=== PATIENT | male | born 1955 | race Caucasian/White ===

== ENCOUNTER 2016-10-07 18:22 | Inpatient (IN) | payer OTHER ==
--- NOTE | ~2016-10-07 | DS ---
Discharge Summary [facility] [address]. [address] NAME: JASON LUIS : 55 STATUS : DIS IN PAT#: [id number] AGE: 61 ADM/REG DATE : 10/07/16 MR#: [id number] REPORT SERV DATE: 10/23/16 DICTATED BY: STEVE RIDLEY DATE: 10/23/16 REPORT STATUS : Draft TRANSCRIBED BY: LAYLA DATE: 10/23/16 Data Collection from hospitalization DISCHARGE DIAGNOSES: 1. Sepsis. 2. Ischemia/gangrene of the bilateral toes. 3. Peripheral vascular disease. 4. Deep venous thrombosis. 5. End-stage renal disease. 6. Status post failed renal transplant. 7. Coronary artery disease. 8. Hypertension. 9. Diabetes mellitus. 10.History of myocardial infarction. 11.Hypothyroidism. 12.Hyperlipidemia. CONSULTATIONS: iSd Maynard M.D. PROCEDURES PERFORMED: 1. Aortogram with bilateral lower extremity runoff, percutaneous atherectomy of left popliteal artery with 2.2 mm [place] atherectomy device, percutaneous angioplasty of left superficial femoral artery and popliteal arteries with 6 mm balloon, percutaneous angioplasty of left posterior tibial artery with 2-3 mm tapered balloon on 10/11/2016. 2. Bilateral lower extremity arteriogram on 10/15/2016. 3. Arterial Doppler study of the lower extremities on 10/09/2016. MEDICATIONS: Zyloprim 100 mg daily, aspirin 81 mg at bedtime, Lipitor 40 mg at bedtime, Coreg 6.25 mg daily, Plavix 75 mg daily, Neurontin 300 mg twice a day, Lantus 26 units subcutaneously daily, Humalog as instructed, Levothroid 125 mcg daily, Nitrostat 0.4 mg sublingually as needed, Deltasone 10 mg daily, Neosporin ointment one application topically daily as needed, and Coumadin 2.5 mg every evening. CONDITION AT DISCHARGE: Stable. DISPOSITION: The patient was discharged home on a renal-diabetic diet with no concentrated carbohydrates and activities as instructed. He would follow up with the [facility] following discharge for an INR check. He would follow up at the [facility] for wound care as scheduled. He would follow up at the Dialysis Clinic as scheduled on 10/17/2016. HOSPITAL COURSE: This is a 61-year-old man who has a history of renal transplant in 1998 along with pancreatic transplant in 1998, but later had a second pancreatic transplant in 2001 which became infected and had to be removed also. He has had a longstanding history of type 1 diabetes mellitus with neuropathy, chronic kidney disease, and hypothyroidism as well as hyperlipidemia. In July of 2016, he developed severe hypotension and cardiogenic shock after myocardial infarction with drug-eluting stent placed and initiation of hemodialysis shortly thereafter. His past medical history also included gout, manic depression, and hypothyroidism. He developed hypotension related to elevated procalcitonin Discharge Summary [place] [id number] [facility] [place]. [address] NAME: JASON LUIS : 55 STATUS : DIS IN PAT#: [id number] AGE: 61 ADM/REG DATE : 10/07/16 MR#: [id number] REPORT SERV DATE: 10/23/16 DICTATED BY: STEVE RIDLEY DATE: 10/23/16 REPORT STATUS : Draft TRANSCRIBED BY: MODL DATE: 10/23/16 and elevated white count with lactic acid of 5 and cloudy urine. There was also concern about possible infected PermCath. He was admitted to the hospital at this time for further evaluation and treatment. Upon admission, he was placed on Levophed in the emergency room. He had been dialyzing through the PermCath until the week prior to this admission at which time, they used the loop graft that had been placed in early August by Dr. Maynard for the first time the week prior to admission. He said that it became a bit swollen since then, but was nontender. He is steroid dependent for his kidney transplant, and while he was in the hospital in August, he had a DVT around his PermCath and was placed on Coumadin which the [facility] follows. He states that his urine has been cloudy lately. He still makes urine, but not as frequently as before. On the day of admission, he felt weak and when he would almost fall, his family caught him. His toes were raw and he had some blisters on them, they started bleeding when he would rub some after shower. White count was 14,000. He was felt to have sepsis and hypotension. He was started on vancomycin and Zosyn. His long-acting insulin was held and he was started on sliding scale insulin. It was felt that he may need level 2 once he received his IV steroids. Coumadin was continued. Thyroid replacement therapy continued as well. He was on Plavix and aspirin. The following day, he was seen by Dr. Sid Maynard for evaluation of atherosclerosis of the lower extremities with gangrene. He had seen the patient a few days prior to admission in the office. He had dry wounds on his toes. He had been asked to evaluate the patient regarding possible atherosclerosis of the lower extremities. He said he had these wounds for just a brief amount of time. The patient was felt to have an abnormal pulse examination that suggested that he have atherosclerosis of the lower extremities to go along with his dry gangrene on the bilateral toes. A duplex study would be performed to confirm physical exam findings and to allow for him to improve clinically before we move forward. If the duplex came back normal, we could potentially hold off on an angiogram. He was off the Levophed drip. He was on three antibiotics at this time. Blood and urine cultures had been obtained. He remained in the ICU at this time. His INR level was 1.5. On 10/09/2016, he underwent hemodialysis, 13 liters were removed. INR level was 1.6. He underwent an arterial Doppler study of the lower extremities. This demonstrated bilateral significant stenosis on the right in the distal popliteal proximal trifurcation vessels and on the left in the distal SFA. It was felt that he may wish to consider angiography. On 10/10/2016, he had no new complaints. Lower extremity wounds looked stable. He did have some nausea. His right arm was swollen. Insulin drip continued. On 10/11/2016, he was taken to the operating room by Dr. Sid Maynard, where he underwent the above-mentioned procedure. He tolerated this well, and there were no complications. Hemodialysis therapy was performed. He was restarted on his Coumadin. The following day, he had good pain control. White count was 17.8. Hemodialysis therapy continued. INR level was 1.8. He remained stable over the next couple of days, plans were made to take him back to the operating room. He continued to undergo hemodialysis. On 10/15/2016, antibiotics were continued as well as supportive care. He was taken back to the operating room by Dr. Sid Maynard, where he underwent the above-mentioned procedure. He tolerated this well, and there were no complications. Discharge planning was performed. On 10/16/2016, he had no complaints of pain. He had difficulty ambulating secondary to his balance. He was afebrile. White blood cell count had improved. Anticoagulation would be continued for DVT Discharge Summary [place] [address] [place]. [address] NAME: JASON LUIS : 55 STATUS : DIS IN PAT#: [id number] AGE: 61 ADM/REG DATE : 10/07/16 MR#: [id number] REPORT SERV DATE: 10/23/16 DICTATED BY: STEVE RIDLEY DATE: 10/23/16 REPORT STATUS : Draft TRANSCRIBED BY: LAYLA DATE: 10/23/16 prophylaxis. He was wanting to go home. He had no new complaints. He was now off antibiotics. His INR level was 1.5. Discharge instructions were given. Due to his improved and stable condition, he was discharged home with the above-stated instructions. Information collected by: So Burns I submit the above information as my discharge summary. TG/LAYLA Steve Ridley M.D. / [id number] CC: Giorgi Payne TAWANDA GALE Sachin V Phade, M.D.
--- NOTE | ~2016-10-07 | CN ---
Consultation [facility] [address] [place]. [address] NAME: JASON LUIS : 55 STATUS : ADM IN [facility]#: [id number] AGE: 61 ADM/REG DATE : 10/07/16 MR#: [id number] REPORT SERV DATE: 10/15/16 DICTATED BY: SID MAYNARD DATE: 10/14/16 REPORT STATUS : Draft TRANSCRIBED BY: MODL DATE: 10/14/16 CONSULTATION DATE OF CONSULTATION: 10/08/2016 REASON FOR CONSULTATION: Evaluation for atherosclerosis of his lower extremities with gangrene. BRIEF HISTORY: The patient is a 61-year-old gentleman with past medical history significant for diabetes and end-stage renal disease, who has had a right upper extremity AV graft placed by me in the recent past. He was subsequently admitted to the hospital with a right IJ DVT, for which I was consulted. We started him on anticoagulation. I just saw him a few days ago in the office, but he was admitted to the hospital with a distributive shock, presumably from sepsis. He was noted to have dry wounds on his toes. I was asked to evaluate him for possible atherosclerosis of his lower extremities. The patient denies any complaints. He says that he had had these wounds for just a brief amount of time. He did not mention them to me the other day in the office because he did not think that they were anything of significance. The patient denies anything that sounds like ischemic rest pain or claudication. PAST MEDICAL HISTORY: Diabetes, end-stage renal disease, hypothyroidism, hyperlipidemia, coronary artery disease, status post recent myocardial infarction. PAST SURGICAL HISTORY: Includes two pancreas transplants, a kidney transplant, cataract removal, cholecystectomy, right IJ PermCath placement, as well as a forearm loop AV graft. SOCIAL HISTORY: He is . He denies any tobacco, alcohol, or drug use. FAMILY HISTORY: Unremarkable. MEDICATIONS: Documented on the chart and were reviewed. ALLERGIES: NONE. REVIEW OF SYSTEMS: A complete review of systems was performed and is negative with the exception of the aforementioned findings. PHYSICAL EXAMINATION: VITAL SIGNS: Documented on the chart and were reviewed. GENERAL: The patient is awake, alert, and oriented, in no apparent distress. His head and neck examination is benign without any carotid bruits. HEART: Regular rate and rhythm. He was on a little bit of vasoactive medications at the Consultation Report [facility] [address] [place]. [address] NAME: JASON LUIS : 55 STATUS : ADM IN PAT#: [id number] AGE: 61 ADM/REG DATE : 10/07/16 MR#: [id number] REPORT SERV DATE: 10/15/16 DICTATED BY: SID MAYNARD DATE: 10/14/16 REPORT STATUS : Draft TRANSCRIBED BY: MODTim DATE: 10/14/16 time of my examination. LUNGS: Clear. ABDOMEN: Soft, nontender, nondistended with a nonaneurysmal aorta. EXTREMITIES: He has palpable upper extremity pulses with less edema in his forearm than he has had in the past. He has a thrill within his graft. He has palpable femoral pulses. He has palpable popliteal pulses also. I do not appreciate pedal pulses. He has dry gangrene on the tips of his toes bilaterally. NEUROLOGIC: Grossly nonfocal. MUSCULOSKELETAL: Otherwise benign. LABORATORY DATA: His laboratory investigations are consistent with his renal failure. ASSESSMENT AND PLAN: It looks like this gentleman has an abnormal pulse examination that suggests that he has atherosclerosis of his lower extremities to go along with his dry gangrene on his toes bilaterally. I introduced the risks, benefits, and alternatives of angiography with intervention. I would like to get a duplex to confirm my physical exam findings and allow for him to improve clinically before we move forward. If his duplex comes back normal, we could potentially hold off on an angiogram. ELECTRICIAN SUBSTATION SUPERVISOR/LAYLA Sid Maynard M.D. / [id number] CC: Steve Telles M.D.
--- NOTE | ~2016-10-07 | OP ---
Record Of Operation [facility] [address] [place]. [address] NAME: JASON LUIS : 55 STATUS : ADM IN PAT#: [id number] AGE: 61 ADM/REG DATE : 10/07/16 MR#: [id number] REPORT SERV DATE: 10/12/16 DICTATED BY: SID MAYNRAD DATE: 10/12/16 REPORT STATUS : Draft TRANSCRIBED BY: MODTim DATE: 10/12/16 DATE OF PROCEDURE: 10/11/2016 PREOPERATIVE DIAGNOSIS: Hilda 5 chronic bilateral lower extremity ischemia. POSTOPERATIVE DIAGNOSIS: Hilda 5 chronic bilateral lower extremity ischemia. PROCEDURES: 1. Aortogram with bilateral lower extremity runoff. 2. Percutaneous atherectomy of the left popliteal artery with a 2.2 mm [place] atherectomy device. 3. Percutaneous angioplasty of the left SFA and popliteal arteries with a 6 mm balloon. 4. Percutaneous angioplasty of the left posterior tibial artery with a 2-3 mm tapered balloon. SURGEON: Sid Maynard M.D. MANAGER MARKET: [employer]. ANESTHESIA: MAC plus local. INDICATIONS: The patient is a 61 year old with a history of diabetes and renal failure, who has dry gangrene on his toes bilaterally. He has an abnormal pulse examination. Duplex confirms that he has infrapopliteal disease. Thus, he was consented for intervention. DESCRIPTION OF PROCEDURE: After informed consent was obtained, the patient was taken to the operating room and placed in the supine position on the operating table. Monitored anesthesia was administered. The patient's groins and left lower extremity were prepped and draped in usual sterile fashion. Ultrasound-guided access was obtained of the right common femoral artery using a micropuncture technique. An oblique angiogram confirmed puncture within the anterior common femoral artery. I passed a wire up into the aorta. I placed a 5 [place]i sheath. A UF catheter was placed into the perirenal aorta. An aortogram demonstrated occluded renal arteries bilaterally. The arteries were extremely calcified. There was no hemodynamically significant aortoiliac disease. I pulled the catheter down above the aortic bifurcation and obtained pulse phase imaging down both lower extremities. This revealed no hemodynamically significant bilateral common femoral, deep femoral, or superficial femoral artery disease. Having said that, there was some calcification within the left SFA. Some of this extruded into the lumen of the SFA. There were bilateral popliteal artery occlusions with no distal reconstitution noted. I systemically heparinized and placed a 6-Bahraini 90 cm sheath up and over the aortic bifurcation into the left popliteal artery. I obtained an angiogram from this point that demonstrated that there may be a hint of peroneal runoff. This was not previously visualized. I crossed the calcified popliteal artery occlusion and obtained an angiogram with the catheter in the popliteal artery. This demonstrated that the very first segment of the anterior tibial artery was patent. The rest of it was occluded. The tibioperoneal trunk was patent, as was the peroneal artery. The posterior tibial artery was patent, but had stenosis in the Record Of Operation [place] [id number] [facility] [place]. [address] NAME: JASON LUIS : 55 STATUS : ADM IN [facility]#: [id number] AGE: 61 ADM/REG DATE : 10/07/16 MR#: [id number] REPORT SERV DATE: 10/12/16 DICTATED BY: SID MAYNARD DATE: 10/12/16 REPORT STATUS : Draft TRANSCRIBED BY: LAYLA DATE: 10/12/16 midportion. Thus, I performed a jet stream atherectomy of the left popliteal artery. I performed a [place] atherectomy of the left popliteal artery using a 2.2 mm device. I subsequently angioplastied the artery with a 6 mm balloon. Imaging obtained afterwards showed a great result. I went back up and angioplastied the other calcified lesions of the SFA where there was some plaque extruding into the lumen of the artery, as oblique imaging did demonstrate that there was more significant stenosis than originally appreciated. I then obtained imaging that showed a good result. I angioplastied the left posterior tibial artery with a 2 to 2-1/2 mm tapered balloon. Imaging obtained afterwards showed improvement. Having said that, there was sluggish flow down through the arteries. This was noted even on our first imaging. I put my catheter down into the posterior tibial artery and obtained the imaging of the foot, as prior imaging was inadequate. There was a calcified occlusion of the posterior tibial artery right at the ankle. There was minimal flow in the foot via collaterals. I tried to cross this posterior tibial artery occlusion, but was unsuccessful. I did not think that this was an embolus, but rather in situ calcification. Seeing as how we had improvement in flow all the way down to the ankle with collateralization to the foot, I withdrew my wire, catheter, and sheath, and used a ProGlide device to close the arteriotomy. The patient tolerated the procedure well without any intraprocedural complications noted. If he does well from this, he will need staged attempted intervention on his right lower extremity. Once again, I did not see any distal reconstitution noted on the right side, but it may be a case similar to this in that there is something open past the popliteal artery, but it cannot be visualized from the imaging that we have already obtained. TERRITORY SALES REPRESENTATIVE/MODL Sid Maynard M.D. / [id number] CC: Giorgi Payne M.D.
--- NOTE | ~2016-10-07 | HP ---
History And Physical [place] [id number] [facility] [place]. [address] NAME: JASON LUIS : 55 STATUS : ADM IN [facility]#: [id number] AGE: 61 ADM/REG DATE : 10/07/16 MR#: [id number] REPORT SERV DATE: 10/08/16 DICTATED BY: STEVE RIDLEY DATE: 10/07/16 REPORT STATUS : Draft TRANSCRIBED BY: MODL DATE: 10/07/16 DATE OF ADMISSION: 10/07/2016 HISTORY OF PRESENT ILLNESS: Mr. Luis is a 61-year-old white male with a history of renal transplant in 1998 along with pancreatic transplant in 1998, but later had a second pancreatic transplant in 2001 which became infected and had to be removed also. He has had a longstanding history of diabetes mellitus type 1 with neuropathy, chronic kidney disease, hypothyroidism, hyperlipidemia, and in July 2016 he developed severe hypotension and cardiogenic shock after myocardial infarction with drug-eluting stent placed, and initiation of hemodialysis shortly thereafter. His past medical history also includes gout, manic depression, and hypothyroidism. He is admitted now for hypotension related to elevated procalcitonin, elevated white count, lactate acid of 5 and reported cloudy urine and also concern about possibly infected Permacath. He was admitted and placed on Levophed in the emergency room via a peripheral IV and that was switched over to his Permacath when he arrived in the unit. He has been dialyzing through the Permacath until last week at which time they used the loop graft that was placed in early August by Dr. Maynard for the first time last week. He says it has been a bit swollen since then, but nontender. He is steroid dependent from his kidney transplants, and while he was in the hospital in August he had a DVT around his Permacath and [facility]. He states that his urine has been cloudy lately. He still makes urine, but not as frequently as before. He felt weak today, tried to falls his family caught him. His toes have been raw, he has some blisters on them, and that have started bleeding when he rubs some after showers. REVIEW OF SYSTEMS: Remainder of review of systems is negative. SOCIAL HISTORY: No tobacco. No alcohol. 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 Disabled, and . FAMILY HISTORY: Colon cancer in his father. Hypertension and diabetes in his mother. End- stage renal disease in a brother. His sister gave him first kidney. PHYSICAL EXAMINATION: VITAL SIGNS: Blood pressure 110/66, heart rate of 85, respirations 10 to 15, afebrile. GENERAL: Alert, in good spirits. Good historian. HEENT: Unremarkable. NECK: Supple. No jugular venous distention. He has a right IJ Permacath without tenderness over the exit site. CHEST: Clear bilaterally. CARDIOVASCULAR: Grade 2/6 systolic ejection murmur. No rub. ABDOMEN: No tenderness over his abdomen and cannot palpate the renal transplant, but it is still there. Bowel sounds are present. EXTREMITIES: Toes 6 of his 10 toes have blisters on them which show some blood clots on them, but no active bleeding. Second toe on his left foot has a Band-Aid on it, did not remove the toes, not warm, and there is no drainage. Loop graft of the right forearm nontender, some edema around it. No edema in his lower extremities. History And Physical [address] [address] NAME: JASON LUIS : 55 STATUS : ADM IN [facility]#: [id number] AGE: 61 ADM/REG DATE : 10/07/16 MR#: [id number] REPORT SERV DATE: 10/08/16 DICTATED BY: STEVE RIDLEY DATE: 10/07/16 REPORT STATUS : Draft TRANSCRIBED BY: MODTim DATE: 10/07/16 LABORATORY DATA: Lab work shows a blood gas with a pH of 7.49, pCO2 of 29, PO2 of 72 on room air. Sodium 136, potassium 3.9, chloride 92, CO2 of 24, BUN of 52, creatinine 5.9, blood sugar 72. Troponin 0.03. Lactate of 5. Calcium 8.9, magnesium 2.1. White count 698[address], hemoglobin 9, hematocrit 29, and platelet count 335,000. Chest x-ray shows clear lung andrade. Recent urine in August showed Pseudomonas that was pansensitive and enterococci which was also sensitive to vancomycin. ASSESSMENT: 1. Sepsis, hypotension, lactic acid, elevated white count and procalcitonin elevation. I have started Vanco and Zosyn based on urine sensitivities from August as well as possibility of catheter infection and there is a left retrocardiac haziness that is hard to tell if it is normal or not. I will await Pulmonary or x-ray radiologist's opinion. 2. End-stage renal disease, on Saturday, Saturday, Saturday, [address] [facility] following a failed renal transplant in 1998. 3. Diabetes mellitus. He has failed pancreatic transplant both in 1998 and 2001, back on insulin. I have held his long-acting insulin, but started on sliding scale. May need higher than level 2 once he gets his IV steroids. 4. Recent deep venous thrombosis, on Coumadin. We will continue. 5. Hypothyroidism, on replacement therapy. 6. Coronary artery disease, status post acute DC in July with cardiogenic shock resulted with a drug-eluting stent, on Plavix and aspirin. 7. Recurrent urinary tract infections suspected. 8. Hypertension, currently hypotensive. We will hold blood pressure medicines. 9. Arteriovenous graft loop on the right forearm and right IJ Permacath, both placed by Dr. Maynard in August. Plan dialysis in a.m. YARITZA/LAYLA Steve Ridley M.D. / [id number] CC: Giorgi Payne MD
--- NOTE | ~2016-10-07 | OP ---
Record Of Operation [facility] [address] [place]. [address] NAME: JASON LUIS : 55 STATUS : ADM IN PAT#: [id number] AGE: 61 ADM/REG DATE : 10/07/16 MR#: [id number] REPORT SERV DATE: 10/16/16 DICTATED BY: SID MAYNARD DATE: 10/15/16 REPORT STATUS : Draft TRANSCRIBED BY: MODL DATE: 10/15/16 DATE OF PROCEDURE: 10/15/2016 PREOPERATIVE DIAGNOSIS: Ritchie V chronic bilateral lower extremity ischemia. POSTOPERATIVE DIAGNOSIS: Ritchie V chronic bilateral lower extremity ischemia.. PROCEDURE: Bilateral lower extremity arteriogram. SURGEON: Sid Maynard M.D. DRAIN TILE PRESS OPERATOR: None. ANESTHESIA: MAC plus local. INDICATIONS: The patient is a 61-year-old gentleman with a past medical history significant for end-stage renal disease and diabetes who has dry gangrene on his toes bilaterally with evidence of atherosclerosis of his lower extremities. I performed a left lower extremity intervention in a few days ago and he returns for a staged right lower extremity intervention. Risks, benefits, and alternatives were discussed. He wished to proceed. DESCRIPTION OF PROCEDURE: After informed consent was obtained, the patient was taken to the operating room and placed in the supine position on the operating table. Monitored anesthesia was administered. The patient's groins and right lower extremity were prepped and draped in the usual sterile fashion. Ultrasound-guided access was obtained of the left common femoral artery using a micropuncture technique. An oblique angiogram confirmed puncture within the anterior common femoral artery. I selected out the right common iliac artery. I obtained an angiogram that demonstrated no hemodynamically significant right common iliac, internal iliac, and external iliac artery disease. The arteries, however, were calcified. I selected out the right external iliac artery and obtained sequential imaging down the right lower extremity. While there was sluggish flow, there was no hemodynamically significant right common femoral, deep femoral, or superficial femoral artery disease. There was a popliteal artery occlusion and more distal reconstitution was not noted. I systemically heparinized and placed a 6-Slovenian 90 cm sheath up and over the aortic bifurcation into the right popliteal artery. I obtained an angiogram from this point, as prior imaging was inadequate. This demonstrated a popliteal artery occlusion with reconstitution of a very short segment of diseased popliteal artery. There was late filling of the posterior tibial artery in the mid leg, but more distal flow was not noted. I had to cross the right popliteal artery occlusion, but was unsuccessful. I obtained additional imaging that demonstrated that there was perhaps a segment of the peroneal artery that was patent. The posterior tibial artery was patent along the mid segment. The anterior tibial artery was chronically occluded. The more distal posterior tibial and peroneal arteries were occluded with no distal runoff noted. I then ultrasounded the right posterior tibial artery. Although I did not see any color flow on the ultrasound, I tried to access it in a retrograde fashion to see if I could find an open lumen. I was unsuccessful. Thus, I pulled my sheath back into the left external iliac artery and obtained sequential imaging Record Of [address] [place]. [address] NAME: JASON LUIS : 55 STATUS : ADM IN [facility]#: [id number] AGE: 61 ADM/REG DATE : 10/07/16 MR#: [id number] REPORT SERV DATE: 10/16/16 DICTATED BY: SID MAYNARD DATE: 10/15/16 REPORT STATUS : Draft TRANSCRIBED BY: MODTim DATE: 10/15/16 down the left lower extremity. The popliteal artery that was previously intervened upon was patent. The posterior tibial and peroneal arteries were patent proximally. More distal flow was not noted in the posterior tibial artery, the flow was extremely sluggish, as previously noted. At this point, I withdrew my wire, catheter, and sheath and used a ProGlide device to close the arteriotomy. The patient tolerated the procedure well without any intraprocedural complications noted. TUNGSTEN TENDER/MODL Sid Maynard M.D. / [id number] CC: Giorgi Payne TAWANDA GALE Mandeep Grewal, M.D.
[~2016-10-07 18:22] MED LIST: APRES25 PO; ASAB PO; CEFT5 PO; CIP5 PO; COREG6 PO; COUMADIN7.5 MG PO; COZAAR100 MG PO; EFFIENT10 PO; FOSRENOL1000 MG PO; HUMAPUMP SC; L40 PO; LANTUSCART SC; LIPITOR40 PO; MAGOX4 PO; NEUR300 PO; NITROSTAT0.4 MG SL; NORV5 PO; NOVLOGPUMP SC; NOVOLOG SC; P5 PO; PHOSLO PO; PLAVIX PO; PROGRAF1 PO; ROCALTROL 0.0.25 MCG PO; SYN125 PO; TAZTIA X4 PO; VANCO500 IV; VASOTEC2 PO; Z100 PO; ZOCOR10 PO; ZOFRAN ODT4 MG PO
[2016-10-07 18:24] LABS: BASOPHILS 0.2 %; BASOPHILS ABSOLUTE 0.03 10/3/uL (0.0-0.16); EOSINOPHILS 1.1 %; EOSINOPHILS ABSOLUTE 0.16 10/3/uL (0.0-0.53); HEMATOCRIT 29.6 % (40.0-51.0); HEMOGLOBIN 9.5 g/dL (13.6-17.8); IMMATURE GRANULOCYTES 0.3 %; IMMATURE GRANULOCYTES ABSOLUTE 0.05 10/3/uL (0.0-0.11); LYMPHOCYTES 5.6 %; LYMPHOCYTES ABSOLUTE 0.81 10/3/uL (0.67-4.30); MANUAL DIFF NO %; MEAN CORPUS HGB CONC 32.1 g/dL (32.0-36.0); MEAN CORPUSCULAR HEMOGLOB 27.1 pg (26.0-34.0); MEAN CORPUSCULAR VOLUME 84.6 fL (80-100); MONOCYTES 7.6 %; MONOCYTES ABSOLUTE 1.09 10/3/uL (0.21-1.20); NEUTROPHILS 85.2 %; NEUTROPHILS ABSOLUTE 12.21 10/3/uL (2.02-8.40); PLATELET COUNT 335 10/3/uL (150-400); RBC DISTRIBUTION WIDTH 17.3 % (12.0-16.0); WHITE BLOOD CELLS 14.4 10/3/uL (4.5-10.5)
[2016-10-07 18:33] LABS: INTERNATIONAL NORMAL RATI 1.5 UNITS (-); PARTIAL THROMBO TIME 39.7 SEC (22.5-37.2)
[2016-10-07 18:36] LABS: PROTIME (NOT ORD) 18.4 SEC (12.0-14.5)
[2016-10-07 18:41] LABS: BUN (BLOOD UREA NITROGEN) 52 MG/DL (6-23); CALCIUM, SERUM 8.9 MG/DL (8.5-10.4); CHEST PAIN PROFILE TAT 0 Hrs 22 Mins; CHLORIDE, SERUM 96 MMOL/L (96-112); CO2 (CARBON DIOXIDE) 24 MMOL/L (24-34); CREATININE 5.98 MG/DL (0.70-1.30); GFR AFRICAN AMERICAN 11 ML/MIN (>=60); GFR NON AFRICAN AMERICAN 9 ML/MIN (>=60); GLUCOSE, SERUM 72 MG/DL (60-99); POTASSIUM, SERUM 3.9 MMOL/L (3.5-5.3); SODIUM, SERUM 136 MMOL/L (135-148); TROPONIN I 0.03 NG/ML (<0.05)
[2016-10-07 19:43] LABS: PROCALCITONIN 64.06 ng/mL (<0.5)
[2016-10-07] MEDS ORDERED: COREG6 PO (19:48)
[2016-10-07] MEDS ORDERED: LIPITOR40 PO (19:48)
[2016-10-07] MEDS ORDERED: ASAB PO (19:48)
[2016-10-07] MEDS ORDERED: Z100 PO (19:48)
[2016-10-07] MEDS ORDERED: P5 PO (19:49)
[2016-10-07] MEDS ORDERED: PLAVIX PO (19:49)
[2016-10-07] MEDS ORDERED: NEUR300 PO (19:49)
[2016-10-07] MEDS ORDERED: LEVOTHROID125 MCG PO (19:49)
[2016-10-07] MEDS ORDERED: NITROSTAT0.4 MG SL (19:50)
[2016-10-07] MEDS ORDERED: LANTUS SC (19:50)
[2016-10-07] MEDS ORDERED: C25 PO (19:50)
[2016-10-07] MEDS ORDERED: NEO-OINT15 TOP (19:50)
[2016-10-07] MEDS ORDERED: HUMALOG SC (19:50)
[2016-10-07 20:46] LABS: ALLENS TEST Pos; BE (BASE EXCESS) -1.1 MEQ/L (0 +/- 2.5); HCO3 (ACTUAL BICARBONATE) 21.6 MEQ/L (23-27); HEMOBLOGIN CONTENT 10.1 G/DL (14-18); INSTRUMENT SERIAL # 8087; METHEMOGLOBIN 0.1 % (0-3); O2 CONTENT 13.3 VOL% (18-24); PCO2 (CO2 TENSION) 29 MMHG (35-45); PO2 (O2 TENSION) 72 MMHG (79-93); SAMPLE Arterial; pH 7.49 (7.37-7.43)
[2016-10-08 00:22] LABS: ASCORBIC ACID (UR NOT ORDER) NEG (NEG); BILIRUBIN, URINE NEGATIVE (NEG); ER URINALYSIS TAT 0 Hrs 19 Mins; KETONE, URINE TRACE MG/DL (NEG); LEUKOCYTE ESTERASE(NOT OR LARGE (NEG); NITRITE (URINE) NEG (NEG); WBC (NOT ORDERED) (RFLEX) 125 (0-5)
[2016-10-08 04:46] LABS: BASOPHILS 0.1 %; BASOPHILS ABSOLUTE 0.01 10/3/uL (0.0-0.16); EOSINOPHILS 0.1 %; EOSINOPHILS ABSOLUTE 0.01 10/3/uL (0.0-0.53); HEMATOCRIT 29.4 % (40.0-51.0); HEMOGLOBIN 9.6 g/dL (13.6-17.8); IMMATURE GRANULOCYTES 0.3 %; IMMATURE GRANULOCYTES ABSOLUTE 0.03 10/3/uL (0.0-0.11); LYMPHOCYTES 3.1 %; LYMPHOCYTES ABSOLUTE 0.32 10/3/uL (0.67-4.30); MEAN CORPUS HGB CONC 32.7 g/dL (32.0-36.0); MEAN CORPUSCULAR HEMOGLOB 27.4 pg (26.0-34.0); MONOCYTES 2.1 %; MONOCYTES ABSOLUTE 0.21 10/3/uL (0.21-1.20); NEUTROPHILS 94.3 %; NEUTROPHILS ABSOLUTE 9.61 10/3/uL (2.02-8.40); PLATELET COUNT 333 10/3/uL (150-400); RBC DISTRIBUTION WIDTH 17.3 % (12.0-16.0); WHITE BLOOD CELLS 10.2 10/3/uL (4.5-10.5)
[2016-10-08 04:49] LABS: MANUAL DIFF NO %
[2016-10-08 04:58] LABS: BUN (BLOOD UREA NITROGEN) 52 MG/DL (6-23); CALCIUM, SERUM 8.7 MG/DL (8.5-10.4); CHLORIDE, SERUM 97 MMOL/L (96-112); CO2 (CARBON DIOXIDE) 24 MMOL/L (24-34); CREATININE 5.92 MG/DL (0.70-1.30); GFR AFRICAN AMERICAN 11 ML/MIN (>=60); GFR NON AFRICAN AMERICAN 9 ML/MIN (>=60); POTASSIUM, SERUM 3.9 MMOL/L (3.5-5.3); SODIUM, SERUM 135 MMOL/L (135-148)
[2016-10-08 05:00] LABS: INTERNATIONAL NORMAL RATI 1.5 UNITS (-); PROTIME (NOT ORD) 18.1 SEC (12.0-14.5)
[2016-10-08 05:01] LABS: GLUCOSE, SERUM 87 MG/DL (60-99)
[2016-10-08 06:37] LABS: PROCALCITONIN 51.89 ng/mL (<0.5)
[2016-10-09 10:55] LABS: BASOPHILS 0.1 %; BASOPHILS ABSOLUTE 0.01 10/3/uL (0.0-0.16); EOSINOPHILS 0 %; HEMATOCRIT 26.9 % (40.0-51.0); HEMOGLOBIN 8.9 g/dL (13.6-17.8); IMMATURE GRANULOCYTES 0.2 %; IMMATURE GRANULOCYTES ABSOLUTE 0.02 10/3/uL (0.0-0.11); LYMPHOCYTES ABSOLUTE 0.47 10/3/uL (0.67-4.30); MEAN CORPUS HGB CONC 33.1 g/dL (32.0-36.0); MEAN CORPUSCULAR HEMOGLOB 26.6 pg (26.0-34.0); MEAN PLATELET VOLUME 9.7 fL (9.2-13.0); MONOCYTES 1.5 %; MONOCYTES ABSOLUTE 0.17 10/3/uL (0.21-1.20); NEUTROPHILS 94.2 %; NEUTROPHILS ABSOLUTE 11.01 10/3/uL (2.02-8.40); PLATELET COUNT 292 10/3/uL (150-400); RBC DISTRIBUTION WIDTH 17.2 % (12.0-16.0); RED CELL COUNT 3.35 10/6/uL (4.7-6.1); WHITE BLOOD CELLS 11.7 10/3/uL (4.5-10.5)
[2016-10-09 10:56] LABS: MANUAL DIFF NO %; MEAN CORPUSCULAR VOLUME 80.3 fL (80-100)
[2016-10-09 11:06] LABS: BUN (BLOOD UREA NITROGEN) 79 MG/DL (6-23); CALCIUM, SERUM 7.7 MG/DL (8.5-10.4); CHLORIDE, SERUM 98 MMOL/L (96-112); CO2 (CARBON DIOXIDE) 19 MMOL/L (24-34); CREATININE 6.66 MG/DL (0.70-1.30); GFR AFRICAN AMERICAN 9 ML/MIN (>=60); GFR NON AFRICAN AMERICAN 8 ML/MIN (>=60); GLUCOSE, SERUM 228 MG/DL (60-99); POTASSIUM, SERUM 4.7 MMOL/L (3.5-5.3); SODIUM, SERUM 132 MMOL/L (135-148)
[2016-10-09 15:45] LABS: INTERNATIONAL NORMAL RATI 1.6 UNITS (-)
[2016-10-10 02:12] LABS: INTERNATIONAL NORMAL RATI 1.6 UNITS (-); PROTIME (NOT ORD) 19.3 SEC (12.0-14.5)
[2016-10-10 13:10] LABS: CALCIUM, SERUM 8.3 MG/DL (8.5-10.4); CHLORIDE, SERUM 101 MMOL/L (96-112); SODIUM, SERUM 136 MMOL/L (135-148)
[2016-10-10 13:13] LABS: BUN (BLOOD UREA NITROGEN) 60 MG/DL (6-23); CO2 (CARBON DIOXIDE) 23 MMOL/L (24-34); CREATININE 5.23 MG/DL (0.70-1.30); GFR AFRICAN AMERICAN 13 ML/MIN (>=60); GFR NON AFRICAN AMERICAN 11 ML/MIN (>=60); GLUCOSE, SERUM 152 MG/DL (60-99); POTASSIUM, SERUM 4.9 MMOL/L (3.5-5.3)
[2016-10-11 07:21] LABS: BASOPHILS 0.1 %; BASOPHILS ABSOLUTE 0.01 10/3/uL (0.0-0.16); EOSINOPHILS 0 %; HEMATOCRIT 31.7 % (40.0-51.0); HEMOGLOBIN 10.3 g/dL (13.6-17.8); IMMATURE GRANULOCYTES 0.6 %; IMMATURE GRANULOCYTES ABSOLUTE 0.11 10/3/uL (0.0-0.11); LYMPHOCYTES 2.8 %; LYMPHOCYTES ABSOLUTE 0.49 10/3/uL (0.67-4.30); MANUAL DIFF NO %; MEAN CORPUS HGB CONC 32.5 g/dL (32.0-36.0); MEAN CORPUSCULAR VOLUME 83.2 fL (80-100); MEAN PLATELET VOLUME 10.3 fL (9.2-13.0); MONOCYTES 2.2 %; NEUTROPHILS 94.3 %; NEUTROPHILS ABSOLUTE 16.79 10/3/uL (2.02-8.40); PLATELET COUNT 353 10/3/uL (150-400); RBC DISTRIBUTION WIDTH 18.2 % (12.0-16.0); RED CELL COUNT 3.81 10/6/uL (4.7-6.1); WHITE BLOOD CELLS 17.8 10/3/uL (4.5-10.5)
[2016-10-11 07:28] LABS: INTERNATIONAL NORMAL RATI 1.6 UNITS (-); PROTIME (NOT ORD) 19.1 SEC (12.0-14.5)
[2016-10-11 07:38] LABS: CALCIUM, SERUM 8.3 MG/DL (8.5-10.4); CHLORIDE, SERUM 98 MMOL/L (96-112); CO2 (CARBON DIOXIDE) 23 MMOL/L (24-34); GFR AFRICAN AMERICAN 11 ML/MIN (>=60); GFR NON AFRICAN AMERICAN 10 ML/MIN (>=60); GLUCOSE, SERUM 176 MG/DL (60-99); SODIUM, SERUM 137 MMOL/L (135-148)
[2016-10-11 07:39] LABS: BUN (BLOOD UREA NITROGEN) 73 MG/DL (6-23); CREATININE 5.75 MG/DL (0.70-1.30)
[2016-10-11 07:40] LABS: POTASSIUM, SERUM 5.5 MMOL/L (3.5-5.3)
[2016-10-11 14:37] LABS: ALBUMIN 2.3 G/DL (3.5-5.0); PHOSPHORUS, SERUM 7.1 MG/DL (2.5-4.5)
[2016-10-12 07:19] LABS: INTERNATIONAL NORMAL RATI 1.8 UNITS (-); PROTIME (NOT ORD) 20.3 SEC (12.0-14.5)
[2016-10-12 10:39] LABS: BASOPHILS 0 %; EOSINOPHILS 0 %; HEMATOCRIT 31.8 % (40.0-51.0); IMMATURE GRANULOCYTES 0.8 %; IMMATURE GRANULOCYTES ABSOLUTE 0.11 10/3/uL (0.0-0.11); LYMPHOCYTES 2.7 %; LYMPHOCYTES ABSOLUTE 0.38 10/3/uL (0.67-4.30); MEAN CORPUS HGB CONC 31.4 g/dL (32.0-36.0); MEAN CORPUSCULAR HEMOGLOB 27.9 pg (26.0-34.0); MEAN PLATELET VOLUME 10.2 fL (9.2-13.0); MONOCYTES 3.3 %; MONOCYTES ABSOLUTE 0.47 10/3/uL (0.21-1.20); NEUTROPHILS 93.2 %; NEUTROPHILS ABSOLUTE 13.21 10/3/uL (2.02-8.40); PLATELET COUNT 353 10/3/uL (150-400); RBC DISTRIBUTION WIDTH 18.2 % (12.0-16.0); RED CELL COUNT 3.58 10/6/uL (4.7-6.1); WHITE BLOOD CELLS 14.2 10/3/uL (4.5-10.5)
[2016-10-12 10:40] LABS: MANUAL DIFF NO %; MEAN CORPUSCULAR VOLUME 88.8 fL (80-100)
[2016-10-12 10:55] LABS: ALBUMIN 2.3 G/DL (3.5-5.0); CALCIUM, SERUM 8.2 MG/DL (8.5-10.4); CHLORIDE, SERUM 101 MMOL/L (96-112); CO2 (CARBON DIOXIDE) 26 MMOL/L (24-34); CREATININE 5.31 MG/DL (0.70-1.30); GFR AFRICAN AMERICAN 12 ML/MIN (>=60); GFR NON AFRICAN AMERICAN 11 ML/MIN (>=60); POTASSIUM, SERUM 4.9 MMOL/L (3.5-5.3); SODIUM, SERUM 139 MMOL/L (135-148)
[2016-10-12 10:57] LABS: BUN (BLOOD UREA NITROGEN) 67 MG/DL (6-23); GLUCOSE, SERUM 318 MG/DL (60-99); PHOSPHORUS, SERUM 5.6 MG/DL (2.5-4.5)
[2016-10-13 08:12] LABS: INTERNATIONAL NORMAL RATI 1.8 UNITS (-); PROTIME (NOT ORD) 20.7 SEC (12.0-14.5)
[2016-10-13 10:26] LABS: ALBUMIN 2.3 G/DL (3.5-5.0); BASOPHILS 0.2 %; BASOPHILS ABSOLUTE 0.04 10/3/uL (0.0-0.16); CALCIUM, SERUM 8.5 MG/DL (8.5-10.4); CHLORIDE, SERUM 99 MMOL/L (96-112); EOSINOPHILS 0 %; HEMATOCRIT 32.5 % (40.0-51.0); HEMOGLOBIN 10.2 g/dL (13.6-17.8); IMMATURE GRANULOCYTES 2.2 %; LYMPHOCYTES 3.8 %; MEAN CORPUS HGB CONC 31.4 g/dL (32.0-36.0); MEAN CORPUSCULAR HEMOGLOB 26.6 pg (26.0-34.0); MONOCYTES 6.2 %; MONOCYTES ABSOLUTE 1.15 10/3/uL (0.21-1.20); NEUTROPHILS 87.6 %; NEUTROPHILS ABSOLUTE 16.24 10/3/uL (2.02-8.40); NUCLEATED RED BLOOD CELLS 0.8 /100WBC (0-0); PLATELET COUNT 379 10/3/uL (150-400); POTASSIUM, SERUM 5.2 MMOL/L (3.5-5.3); RBC DISTRIBUTION WIDTH 18.7 % (12.0-16.0); RED CELL COUNT 3.84 10/6/uL (4.7-6.1); SODIUM, SERUM 134 MMOL/L (135-148); WHITE BLOOD CELLS 18.5 10/3/uL (4.5-10.5)
[2016-10-13 10:27] LABS: BUN (BLOOD UREA NITROGEN) 94 MG/DL (6-23); CO2 (CARBON DIOXIDE) 21 MMOL/L (24-34); CREATININE 5.82 MG/DL (0.70-1.30); GFR AFRICAN AMERICAN 11 ML/MIN (>=60); GFR NON AFRICAN AMERICAN 10 ML/MIN (>=60); GLUCOSE, SERUM 173 MG/DL (60-99); PHOSPHORUS, SERUM 6.7 MG/DL (2.5-4.5)
[2016-10-13 10:29] LABS: MANUAL DIFF NO %; MEAN CORPUSCULAR VOLUME 84.6 fL (80-100)
[2016-10-14 08:19] LABS: HEMATOCRIT 33.8 % (40.0-51.0); HEMOGLOBIN 10.4 g/dL (13.6-17.8); MEAN CORPUS HGB CONC 30.8 g/dL (32.0-36.0); MEAN CORPUSCULAR HEMOGLOB 26.9 pg (26.0-34.0); MEAN PLATELET VOLUME 9.8 fL (9.2-13.0); PLATELET COUNT 327 10/3/uL (150-400); RBC DISTRIBUTION WIDTH 19.6 % (12.0-16.0); RED CELL COUNT 3.86 10/6/uL (4.7-6.1); WHITE BLOOD CELLS 11.6 10/3/uL (4.5-10.5)
[2016-10-14 08:29] LABS: INTERNATIONAL NORMAL RATI 1.8 UNITS (-); PROTIME (NOT ORD) 20.3 SEC (12.0-14.5)
[2016-10-14 08:39] LABS: ALBUMIN 2.2 G/DL (3.5-5.0); CALCIUM, SERUM 8.4 MG/DL (8.5-10.4); CHLORIDE, SERUM 100 MMOL/L (96-112); CO2 (CARBON DIOXIDE) 23 MMOL/L (24-34); GFR AFRICAN AMERICAN 13 ML/MIN (>=60); GFR NON AFRICAN AMERICAN 11 ML/MIN (>=60); GLUCOSE, SERUM 172 MG/DL (60-99); PHOSPHORUS, SERUM 5.9 MG/DL (2.5-4.5); POTASSIUM, SERUM 4.8 MMOL/L (3.5-5.3); SODIUM, SERUM 136 MMOL/L (135-148)
[2016-10-14 08:40] LABS: BUN (BLOOD UREA NITROGEN) 74 MG/DL (6-23); CREATININE 5.16 MG/DL (0.70-1.30)
[2016-10-14 08:41] LABS: MANUAL DIFF YES %; MEAN CORPUSCULAR VOLUME 87.6 fL (80-100)
[2016-10-14 09:20] LABS: ACANTHOCYTES FEW (3-10/OIF); ANISOCYTOSIS 1+ (5-10/OIF) (0-5/OIF); BAND NEUTROPHILS 1 %; EOSINOPHILS 3 %; EOSINOPHILS ABSOLUTE (CALC) 0.35 10/3/uL (0.0-0.53); IMMATURE GRANS ABSOLUTE (CALC) 0.35 10/3/uL (0.0-0.11); LYMPHOCYTES 3 %; LYMPHOCYTES ABSOLUTE (CALC) 0.35 10/3/uL (0.67-4.30); METAMYELOCYTES 2 %; MONOCYTES 1 %; MONOCYTES ABSOLUTE (CALC) 0.12 10/3/uL (0.21-1.20); MYELOCYTES 1 %; NEUTROPHILS ABSOLUTE (CALC) 10.44 10/3/uL (2.02-8.40); OVALOCYTES 1+ (3-10/OIF) (0-2/OIF); PLATELET ESTIMATE ADQ (ADEQUATE); SCHISTOCYTES OCC (0-2/OIF); SEGMENTED NEUTROPHIL (0) 89 %; TOTAL NUCLEATED CELLS 100; TOXIC GRANULATION 1+
[2016-10-15 17:16] LABS: ALBUMIN 2.4 G/DL (3.5-5.0); CALCIUM, SERUM 8.2 MG/DL (8.5-10.4); CHLORIDE, SERUM 101 MMOL/L (96-112); POTASSIUM, SERUM 5.6 MMOL/L (3.5-5.3); SODIUM, SERUM 135 MMOL/L (135-148)
[2016-10-15 17:17] LABS: BUN (BLOOD UREA NITROGEN) 98 MG/DL (6-23); CO2 (CARBON DIOXIDE) 16 MMOL/L (24-34); CREATININE 5.93 MG/DL (0.70-1.30); GFR AFRICAN AMERICAN 11 ML/MIN (>=60); GFR NON AFRICAN AMERICAN 9 ML/MIN (>=60); GLUCOSE, SERUM 263 MG/DL (60-99); PHOSPHORUS, SERUM 8.4 MG/DL (2.5-4.5)
[2016-10-15 17:58] LABS: BASOPHILS 0 %; EOSINOPHILS 0.1 %; EOSINOPHILS ABSOLUTE 0.01 10/3/uL (0.0-0.53); HEMATOCRIT 32.2 % (40.0-51.0); HEMOGLOBIN 10.5 g/dL (13.6-17.8); IMMATURE GRANULOCYTES 0.9 %; LYMPHOCYTES 2.9 %; LYMPHOCYTES ABSOLUTE 0.32 10/3/uL (0.67-4.30); MEAN CORPUSCULAR HEMOGLOB 28.1 pg (26.0-34.0); MEAN CORPUSCULAR VOLUME 86.1 fL (80-100); MEAN PLATELET VOLUME 10.1 fL (9.2-13.0); MONOCYTES 0.9 %; NEUTROPHILS 95.2 %; PLATELET COUNT 276 10/3/uL (150-400); RBC DISTRIBUTION WIDTH 19.3 % (12.0-16.0); RED CELL COUNT 3.74 10/6/uL (4.7-6.1); WHITE BLOOD CELLS 10.9 10/3/uL (4.5-10.5)
[2016-10-15 17:59] LABS: MEAN CORPUS HGB CONC 32.6 g/dL (32.0-36.0)
[2016-10-15 18:00] LABS: MANUAL DIFF NO %
[2016-10-15 18:07] LABS: INTERNATIONAL NORMAL RATI 1.7 UNITS (-); PROTIME (NOT ORD) 19.8 SEC (12.0-14.5)
[2016-10-16 07:12] LABS: INTERNATIONAL NORMAL RATI 1.5 UNITS (-); PROTIME (NOT ORD) 18.2 SEC (12.0-14.5)
[2016-10-16] MEDS ORDERED: SEVE800T PO (12:30)
[2016-12-02] MEDS ORDERED: PCET PO ×2 (13:27→16:57)
[2017-03-23] MEDS ORDERED: PLAVIX PO (18:57)
[2017-03-23] MEDS ORDERED: Z100 PO (18:57)
[2017-03-23] MEDS ORDERED: NEUR300 PO (18:57)
[2017-03-23] MEDS ORDERED: SYN125 PO (18:57)
[2017-03-23] MEDS ORDERED: P10 PO (18:57)
[2017-03-23] MEDS ORDERED: LIPITOR40 PO (18:57)
[2017-03-23] MEDS ORDERED: HALF81 PO (18:57)
[2017-03-23] MEDS ORDERED: NITROSTAT0.4 MG SL (18:58)
[2017-03-23] MEDS ORDERED: LANTUS SC (18:58)
[2017-03-23] MEDS ORDERED: COREG6 PO (18:58)
[2017-03-23] MEDS ORDERED: HUMALOG SC (18:58)
[2017-03-23] MEDS ORDERED: VANCO1P IV (18:59)
[2017-03-23] MEDS ORDERED: NORCO1 TAB PO (18:59)
[2017-03-23] MEDS ORDERED: FORTAZ IV (19:00)
[2017-04-05] MEDS ORDERED: FLUCON1 PO (13:48)
[2017-04-06] MEDS ORDERED: NYSTATPOW TOP (16:13)
[2017-04-06] MEDS ORDERED: VANCO500 IV (16:14)
[2017-04-29] MEDS ORDERED: ATV.5 PO (22:08)
[2017-05-02] MEDS ORDERED: PROTONIX PO (16:43)
[2017-05-02] MEDS ORDERED: LEVAQUIN5T PO (16:44)
[2017-05-02] MEDS ORDERED: CARASPUDL PO (16:48)
== END 2016-10-16 13:19 | disposition home or self-care (01) | DRG 853 ==
LOC: ER 18:22 → CVICU 20:09 → 2SO 10-10 16:28
PROVIDERS: Emergency Medicine; Internal Medicine Nephrology; Nurse Anesthetist, Certified Registered; Registered Nurse; Surgery
PROC: 5A1D60Z (ICD-10-PCS; 2016-10-09)
PROC: B41D1ZZ Fluoroscopy of Aorta and Bilateral Lower Extremity Arteries using Low Osmolar Contrast (ICD-10-PCS; principal; 2016-10-11 09:45)
PROC: 04CN3ZZ Extirpation of Matter from Left Popliteal Artery, Percutaneous Approach (ICD-10-PCS; 2016-10-11 09:45)
PROC: 047L3ZZ Dilation of Left Femoral Artery, Percutaneous Approach (ICD-10-PCS; 2016-10-11 09:45)
PROC: 047N3ZZ Dilation of Left Popliteal Artery, Percutaneous Approach (ICD-10-PCS; 2016-10-11 09:45)
PROC: B41G1ZZ Fluoroscopy of Left Lower Extremity Arteries using Low Osmolar Contrast (ICD-10-PCS; 2016-10-15)
DX: A41.9 Sepsis, unspecified organism (principal); N18.6 End stage renal disease; R57.0 Cardiogenic shock; I75.022 Atheroembolism of left lower extremity; Z94.83 Pancreas transplant status; E11.52 Type 2 diabetes mellitus with diabetic peripheral angiopathy with gangrene; E87.2 Acidosis; I12.0 Hypertensive chronic kidney disease with stage 5 chronic kidney disease or end stage renal disease; Z94.0 Kidney transplant status; E03.9 Hypothyroidism, unspecified; I25.10 Atherosclerotic heart disease of native coronary artery without angina pectoris; E87.5 Hyperkalemia; M10.9 Gout, unspecified; E78.5 Hyperlipidemia, unspecified; E10.22 Type 1 diabetes mellitus with diabetic chronic kidney disease; E10.42 Type 1 diabetes mellitus with diabetic polyneuropathy; Z99.2 Dependence on renal dialysis; I25.2 Old myocardial infarction; Z79.899 Other long term (current) drug therapy; Z79.02 Long term (current) use of antithrombotics/antiplatelets; Z79.82 Long term (current) use of aspirin
CPT/HCPCS: 36245; 36415; 36600; 37225; 37228; 71010; 75625; 75716; 75774; 80048; 80069; 80202; 81001; 82805; 82962; 83605; 83735; 84145; 84484; 85025; 85610; 85730; 86850; 86900; 86901; 87040; 87077; 87086; 87186; 93005; 93923; 96365; 99285; A9270-GY; C1725; C1760; C1769; C1887; C1894; G0257; J2250; J2405; J2543; J2930; J3010; J3370; Q9966; Q9967

== ENCOUNTER 2016-10-18 12:42 | Emergency (ER) | payer OTHER ==
[~2016-10-18 12:42] MED LIST changes: +C25 PO; +HUMALOG SC; +LANTUS SC; +LEVOTHROID125 MCG PO; +NEO-OINT15 TOP; +SEVE800T PO
[2016-12-02] MEDS ORDERED: PCET PO ×2 (13:27→16:57)
[2017-03-23] MEDS ORDERED: Z100 PO (18:57)
[2017-03-23] MEDS ORDERED: LIPITOR40 PO (18:57)
[2017-03-23] MEDS ORDERED: PLAVIX PO (18:57)
[2017-03-23] MEDS ORDERED: NEUR300 PO (18:57)
[2017-03-23] MEDS ORDERED: SYN125 PO (18:57)
[2017-03-23] MEDS ORDERED: P10 PO (18:57)
[2017-03-23] MEDS ORDERED: HALF81 PO (18:57)
[2017-03-23] MEDS ORDERED: NITROSTAT0.4 MG SL (18:58)
[2017-03-23] MEDS ORDERED: LANTUS SC (18:58)
[2017-03-23] MEDS ORDERED: COREG6 PO (18:58)
[2017-03-23] MEDS ORDERED: HUMALOG SC (18:58)
[2017-03-23] MEDS ORDERED: NORCO1 TAB PO (18:59)
[2017-03-23] MEDS ORDERED: VANCO1P IV (18:59)
[2017-03-23] MEDS ORDERED: FORTAZ IV (19:00)
[2017-04-05] MEDS ORDERED: FLUCON1 PO (13:48)
[2017-04-06] MEDS ORDERED: NYSTATPOW TOP (16:13)
[2017-04-06] MEDS ORDERED: VANCO500 IV (16:14)
[2017-04-29] MEDS ORDERED: ATV.5 PO (22:08)
[2017-05-02] MEDS ORDERED: PROTONIX PO (16:43)
[2017-05-02] MEDS ORDERED: LEVAQUIN5T PO (16:44)
[2017-05-02] MEDS ORDERED: CARASPUDL PO (16:48)
== END 2016-10-18 13:23 | disposition home or self-care (01) ==
LOC: ER 12:42
PROC: 0HQ1XZZ Repair Face Skin, External Approach (ICD-10-PCS; principal; 2016-10-18)
DX: S01.112A Laceration without foreign body of left eyelid and periocular area, initial encounter (principal); S60.811A Abrasion of right wrist, initial encounter; I25.2 Old myocardial infarction; I10 Essential (primary) hypertension; F32.9 Major depressive disorder, single episode, unspecified; E11.9 Type 2 diabetes mellitus without complications; F17.200 Nicotine dependence, unspecified, uncomplicated; Z79.4 Long term (current) use of insulin; Z79.82 Long term (current) use of aspirin; Z79.01 Long term (current) use of anticoagulants; Z79.52 Long term (current) use of systemic steroids; Z79.899 Other long term (current) drug therapy; W22.8XXA Striking against or struck by other objects, initial encounter; Y92.002 Bathroom of unspecified non-institutional (private) residence as the place of occurrence of the external cause
CPT/HCPCS: 70450; 99284

== ENCOUNTER 2016-10-31 19:00 | Inpatient (IN) | payer OTHER ==
--- NOTE | ~2016-10-31 | CN ---
Consultation Report [facility] [address] [place]. [address] NAME: JASON LUIS : 55 STATUS : ADM IN PAT#: [id number] AGE: 61 ADM/REG DATE : 11/01/16 MR#: [id number] REPORT SERV DATE: 11/01/16 DICTATED BY: DAKOTA DORSEY DATE: 11/01/16 REPORT STATUS : Draft TRANSCRIBED BY: MODL DATE: 11/01/16 DATE OF CONSULTATION: 11/01/2016 SERVICE: Otolaryngology. REFERRING DIAGNOSIS: Right neck mass. HISTORY OF PRESENT ILLNESS: This is a 61-year-old male with multiple comorbidities, admitted for evaluation of right neck mass. He was admitted from the renal service. He has end- stage renal disease, on dialysis. PAST MEDICAL HISTORY: Includes end-stage renal disease, failed kidney and pancreas transplant, history of coronary artery disease, type 1 diabetes, hypothyroidism, anemia, peripheral vascular disease. PAST SURGICAL HISTORY: Includes cholecystectomy. ALLERGIES: NO KNOWN DRUG ALLERGIES. SOCIAL HISTORY: Does not use tobacco, alcohol, or drugs. He is a former [employer]. PHYSICAL EXAMINATION: GENERAL: He is awake, alert, in no acute distress. HEENT: He has obvious bulging of his neck on the right-hand side. No auricular or nasal deformities. Oral cavity was pink and moist. No lesions on the buccal mucosa, floor of mouth, oral tongue. Oropharynx reveals a long enlarged and ulcerated right palatine tonsil. The left tonsil is unremarkable. Normal soft palate and uvula. Palpation of face reveals a large conglomerate of lymph nodes in level 3 to level 2 area deep to the sternocleidomastoid. I did not palpate anything on the left side. CT review of the neck without contrast was obtained today. I was able to review that. There was a large conglomerate of necrotic-appearing lymph nodes on the right-hand side. There was also question of nasopharyngeal lesion and right palatine lesion. After reviewing the CT scan, I recommended fiberoptic laryngoscopy to look for a primary lesion. After witnessed informed consent was obtained, the left side of the nose was cannulated with a flexible fiberoptic scope coated in lidocaine. The patient had a small Tornwaldt cyst in the nasopharynx. Further down the right palatine tonsil was again enlarged and abnormal appearing. For my best guess, the lesion was less than 4 cm in greatest dimension, more likely around 2 cm. The lingual tonsils were normal in appearance. The hypopharynx and larynx were normal. He tolerated this procedure well without complications. Furthermore, the patient has undergone a fine-needle aspiration biopsy by Dr. Fortune today. He returned the diagnosis of squamous cell carcinoma to me via the telephone and that will be in the chart soon. 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 The patient is chronically Consultation Report [address] [address] NAME: JASON LUIS : 55 STATUS : ADM IN PAT#: [id number] AGE: 61 ADM/REG DATE : 11/01/16 MR#: [id number] REPORT SERV DATE: 11/01/16 DICTATED BY: DAKOTA DORSEY DATE: 11/01/16 REPORT STATUS : Draft TRANSCRIBED BY: MODL DATE: 11/01/16 immunosuppressed and at risk for head and neck cancer, and unfortunately that is what he is presenting with now. My recommendations are to consult Oncology and Radiation Oncology for evaluation. Likely, the patient would need a PET scan to rule out distant metastasis. Depending on results of the consult, more than likely this patient will be recommended for radiation therapy in combination with chemotherapy. P16 is pending on the biopsy. Typically, surgical management of disease such as this is not first line, but would be possible if the patient is unable to undergo other treatment. Thank you for this consult. We will follow. Please call with any questions, [phone]. PS/MODL Dakota Dorsey MD / [id number] CC: Ramesh Mayes M.D.
--- NOTE | ~2016-10-31 | HP ---
History And Physical [id number] [place]. [address] NAME: JASON LUIS : 55 STATUS : ADM IN [facility]#: [id number] AGE: 61 ADM/REG DATE : 11/01/16 MR#: [id number] REPORT SERV DATE: 11/01/16 DICTATED BY: DATE: REPORT STATUS : Draft TRANSCRIBED BY: MODL DATE: 11/01/16 DATE OF ADMISSION: 11/01/2016 CHIEF COMPLAINT: Right neck swelling and pain, fecal incontinence, and falls. HISTORY OF PRESENT ILLNESS: Mr. Luis is an unfortunate 61-year-old white male who has had quite extensive medical history of end-stage renal disease; failed kidney and pancreas transplant, on chronic immunosuppression; bilateral toes with ischemia. He presents to the hospital with an enlarging right neck mass, pulsatile. Denies any fevers. Chills have been present for two to three days. He has been weak. He has been having falls where his feet just give away. He fell at a doctor's office earlier in the week and had significant bruising to his face and abrasion over his left eyebrow. He has also had significant back pain and has now since his last fall had some fecal incontinence. Does not know when his bowels are going to move. No dark or blood in bowel movements. He denies any fevers or chills, but he is actively chilling when I am in the room, but states that he is chronically that way. No shortness of breath or chest pain. PAST MEDICAL HISTORY: End-stage renal disease; failed kidney and pancreas transplant; coronary artery disease; [place]; type 1 diabetes; hypothyroidism; anemia; hyperlipidemia; chronic immunosuppression; ischemic toes to bilateral feet; cholecystectomy; cataract removal; peripheral vascular disease, status post arteriogram last admission within the last few weeks. SOCIAL HISTORY: He is . His is very active in his care. No tobacco, alcohol, or illicit drug use. FAMILY MEDICAL HISTORY: Positive for end-stage renal disease in a brother and colon cancer, hypertension, diabetes. MEDICATIONS: Allopurinol, aspirin, atorvastatin, Coreg, Plavix, Neurontin, Lantus, Humalog, levothyroxine, nitroglycerin, Deltasone, and Coumadin. REVIEW OF SYSTEMS: 12-point review of systems was obtained, negative with the exception of that in HPI. PHYSICAL EXAMINATION: VITAL SIGNS: Temperature 98.7, blood pressure 100/55, pulse 85, respiratory rate 17, O2 saturation is 98% on 2 L. GENERAL: This is a chronically ill-appearing white male. He is awake, alert, and oriented, answers questions appropriately. HEENT: Normocephalic and atraumatic. Conjunctivae clear. Sclerae anicteric. Oral mucosa is dry. NECK: The right side of his neck about midway up he has a pulsatile mass and the swelling extends all the way up to behind his right ear. It does not feel fluctuant near the ear, but there is little bit of fluctuance down were the origin starts. No induration. No drainage. No redness. History And Physical [address] [address] NAME: JASON LUIS : 55 STATUS : ADM IN [facility]#: [id number] AGE: 61 ADM/REG DATE : 11/01/16 MR#: [id number] REPORT SERV DATE: 11/01/16 DICTATED BY: DATE: REPORT STATUS : Draft TRANSCRIBED BY: MODL DATE: 11/01/16 RESPIRATIONS: Even and unlabored. He does have some expiratory wheezing. HEART: Rate is regular. He does have a systolic murmur. No rub or gallop. ABDOMEN: Soft and nontender. Bowel sounds active. No masses or hepatosplenomegaly. No CVA tenderness. BACK: He does have some low back tenderness. EXTREMITIES: Bilateral feet, he has ischemic toes with slight surrounding erythema. No drainage. NEURO: Very weak, generalized extreme weakness. Main affect flat, but certainly appropriate. PERTINENT LABS AND X-RAY FINDINGS: His CT findings of his lumbar spine were without contrast and showed diffuse spondylitic changes of the lumbar spine, some mild central canal stenosis at L3-4 with mild diffuse disk bulge, marked atrophy of [place] kidney, extensive diverticulosis with sigmoid colon having diffuse wall thickening. Findings consistent with acute diverticulitis, also findings consistent with proctitis and bladder dilation. CT of the sacrum as described above. He had a chest x-ray, which was negative. WBC 3.4, hemoglobin and hematocrit 10 and 31, platelets 182,000. Sodium 142, potassium 3.9, chloride 101, CO2 31, BUN 16, creatinine of 2.7, calcium 7.3, glucose 72, magnesium 1.8. Troponin 0.06. IMPRESSION: 1. Right neck mass. 2. Fall. 3. Fecal incontinence. 4. CT with acute diverticulitis and proctitis. 5. End-stage renal disease. 6. Ischemic toes. 7. Type 1 diabetes. 8. Chronic immunosuppression with failed kidney and pancreas transplant. PLAN: He is going to get a CT of the neck to evaluate the mass to the neck and consult Dr. Maynard regarding the ischemic feet. Dialysis tomorrow per routine. For the diverticulitis, he is going to get antibiotics. We will start Levaquin and Flagyl. Continue usual medicines as appropriate. Pain and nausea medicine provided. Further orders and recommendations pending clinical course. CITLALI/LAYLA SKIP Bolanos / [id number] CC: Ramesh Mayes M.D.
--- NOTE | ~2016-10-31 | CONSULT ---
Radiation Oncology Consult [address] [address] NAME: JASON LUIS : 55 STATUS : DIS IN PAT#: [id number] AGE: 61 ADM/REG DATE : 11/01/16 MR#: [id number] REPORT SERV DATE: 11/05/16 DICTATED BY: CINDY HINES DATE: 11/05/16 REPORT STATUS : Draft TRANSCRIBED BY: MODL DATE: 11/05/16 RADIATION ONCOLOGY CONSULTATION CHIEF COMPLAINT: Squamous cell carcinoma of the head and neck. HISTORY OF PRESENT ILLNESS: Mr. Luis is a pleasant 61-year-old gentleman with multiple comorbidities including end-stage renal disease and a new right neck mass. I was asked to see Mr. Luis to discuss treatment options. He presented with a right neck mass approximately one month ago that enlarged significantly over the last week. CT scan showed a large right level 3 lymphadenopathy with a questionable lesion involving the palatine tonsils and asymmetry in the nasopharyngeal region. Fiberoptic laryngoscopy performed by Dr. Valiente revealed a torn walled cyst in the nasopharynx and a right abnormal appearing palatine tonsil between 2 and 4 cm. Biopsies were taken and pathology is currently pending. Initial diagnosis is squamous cell carcinoma. Mr. Luis is currently waiting for dialysis tomorrow morning and then will likely be released from the hospital. PAST MEDICAL HISTORY: End-stage renal disease, pancreatic transplant, coronary artery disease, diabetes, hypothyroidism, anemia, peripheral vascular disease, previous kidney and pancreatic transplant, cholecystectomy. No previous radiation, chemotherapy. 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 Does not drink alcohol or use tobacco. FAMILY HISTORY: No family history of head and neck malignancy. Father with colon cancer. REVIEW OF SYSTEMS: A comprehensive review of system was discussed with the patient in detail. Pertinent positives and negatives are included above in the history of present illness. MEDICATIONS: Medication list reviewed with the patient included in the patient's chart. ALLERGIES: NO KNOWN DRUG ALLERGIES. PHYSICAL EXAMINATION: GENERAL: The patient is awake, alert, and oriented, in no acute distress. VITAL SIGNS: Afebrile. Vital signs stable. HEENT: Extraocular movements are intact. Sclerae are anicteric. Oral cavity is benign without erythema. Examination the right tonsil does reveal an exophytic mass measuring approximately 2 cm. NECK: Large right neck mass, levels 2 and 3. No palpable lymphadenopathy in the left cervical region. No axillary lymphadenopathy. LUNGS: Clear to auscultation bilaterally. Appropriate work of breathing. HEART: Regular rate. Normal sinus rhythm. No murmurs, rubs, or gallops. ABDOMEN: Soft, nontender, nondistended. No hepatosplenomegaly. No apparent hernias. EXTREMITIES: No cyanosis, clubbing, or edema. Radiation Oncology Consult [address] [address] NAME: JASON LUIS : 55 STATUS : DIS IN PAT#: [id number] AGE: 61 ADM/REG DATE : 11/01/16 MR#: [id number] REPORT SERV DATE: 11/05/16 DICTATED BY: CINDY HINES DATE: 11/05/16 REPORT STATUS : Draft TRANSCRIBED BY: LAYLA DATE: 11/05/16 SKIN: No rashes. No obvious jaundice. LABORATORY DATA: Labs and other data, imaging, and pathology as described above. ASSESSMENT/PLAN: A 61-year-old gentleman with a likely stage JEFF squamous cell carcinoma of the right tonsil. He will need a PET CT to complete staging as an outpatient. I will schedule him for followup for one week after he is released from the hospital to discuss the results of his PET CT and to initiate treatment planning. He will most likely be treated with concurrent chemoradiation therapy. If he cannot receive chemotherapy, I could treat him with an altered course of radiation. I appreciate the opportunity to be involved in his care. CRISTOBAL/LAYLA Cindy Hines M.D. / [id number] CC: Giorgi Gaona TAWANDA GALE Davey B. Daniel, M.D. Peter Sabatini, MD
--- NOTE | ~2016-10-31 | CN ---
Consultation Report [facility] [address] [facility] [place]. [address] NAME: JASON LUIS : 55 STATUS : ADM IN PAT#: [id number] AGE: 61 ADM/REG DATE : 11/01/16 MR#: [id number] REPORT SERV DATE: 11/03/16 DICTATED BY: MATEO LAND DATE: 11/03/16 REPORT STATUS : Draft TRANSCRIBED BY: MODL DATE: 11/03/16 MEDICAL ONCOLOGY CONSULTATION DATE OF CONSULTATION: 11/02/2016 REFERRING PHYSICIAN: Lex Valiente MD HISTORY OF PRESENT ILLNESS: Mr. Luis is a 61-year-old gentleman, with diabetes, coronary artery disease, hypothyroidism, kidney transplant, now in end-stage renal disease, and peripheral vascular disease. He has noted swelling in the right neck for roughly a month that rapidly worsened over the last week, with a bulky enlarged right cervical nodes. He reports also some abdominal pain and chills, but no fevers. He is on dialysis on Mondays, Wednesdays, and Fridays, and is chronically ill with history of ischemia and gangrene in both feet. He was admitted earlier this month for DVT ischemia. Dr. Valiente performed endoscopy showing a large ulcerated right palatine tonsil. A CT scan shows large bulky bilateral lymph nodes with the largest on the right measuring 4.3 cm, but also enlarged nodes present on the left as well. A final aspirate of the right cervical node shows a squamous cell carcinoma, p16 is currently pending. 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 The patient is chronically ill, but has been active in the last few months. He is on dialysis on Mondays, Wednesdays, and Fridays. He has significant peripheral vascular disease at this point. He reports a mild weight loss, but otherwise he is doing well. PAST MEDICAL HISTORY: End-stage renal disease, history of a failed kidney, pancreas transplant, history of coronary artery disease, diabetes, hypothyroidism, anemia, and peripheral vascular disease. PAST SURGICAL HISTORY: Cholecystectomy, kidney and pancreas transplant, cholecystectomy, right IJ placement, and forearm looped AV graft. 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 Previously served in the . He does not drink or smoke. FAMILY HISTORY: Significant for colon cancer in his father. End-stage renal disease in his brother. REVIEW OF SYSTEMS: A 12-point review of systems was obtained. He did report some chills in the last few days. Mild weight loss. No chest pain or shortness of breath. Positive for fatigue. Negative for nausea, vomiting, diarrhea, hematochezia, or melena. Positive for right neck mass with some discomfort there. Consultation Report [address] [place]. [address] NAME: JASON LUIS : 55 STATUS : ADM IN [facility]#: [id number] AGE: 61 ADM/REG DATE : 11/01/16 MR#: [id number] REPORT SERV DATE: 11/03/16 DICTATED BY: MATEO LAND DATE: 11/03/16 REPORT STATUS : Draft TRANSCRIBED BY: LAYLA DATE: 11/03/16 HOME MEDICATIONS: Aspirin, allopurinol, Atorvastatin, Coreg, Plavix, Neurontin, Lantus, Humalog, levothyroxine, nitroglycerin, Coumadin, and prednisone. PHYSICAL EXAMINATION: VITAL SIGNS: Temperature 97.4, heart rate of 83, BP 88/45. HEENT: Pupils are equal, round, and reactive. No oral lesions. Bilateral cervical adenopathy right greater than left. LUNGS: Clear to auscultation. No wheezes or rales. CARDIAC: Regular rate and rhythm. Normal S1 and S2. 2+ radial pulses. ABDOMEN: Soft, nontender, and nondistended. EXTREMITIES: No clubbing, no cyanosis, no edema. He does have bilateral ischemia, those need to be addressed currently. LABORATORY DATA: Creatinine of 5.0, albumin is 1.8, hemoglobin of 8.5, and white count 4.4. A CT scan was personally reviewed. ASSESSMENT AND PLAN: Jason Luis is a 61-year-old gentleman, with a locally advanced head and neck cancer. A PET scan has been ordered and they will need to be done to complete staging to help us make this treatment decisions. The patient has a large bulky disease, definitive treatment can be considered, if he has no signs of distant disease. Given is peripheral neuropathy, I think we are limited to the use of cisplatin or carboplatin. Given his renal failure, I think it is fine to use cisplatin on a weekly dosing on non dialysis days. His performance status is quite limited and I am a bit worried about the toxicity from the treatment. Therefore, we will use weekly dosing instead of every three week. Risks were discussed with the patient and his . I reviewed his CT imaging personally and I discussed his past medical history. I will plan on seeing him in the office in one to week to go over the PET scan. DBD/MODL Mateo Land M.D. / [id number] CC: Giorgi Gaona TAWANDA GALE
[2016-10-31 17:17] LABS: BASOPHILS 0.3 %; BASOPHILS ABSOLUTE 0.01 10/3/uL (0.0-0.16); EOSINOPHILS 2.4 %; EOSINOPHILS ABSOLUTE 0.08 10/3/uL (0.0-0.53); HEMATOCRIT 31.9 % (40.0-51.0); LYMPHOCYTES 12.2 %; LYMPHOCYTES ABSOLUTE 0.41 10/3/uL (0.67-4.30); MEAN CORPUS HGB CONC 31.3 g/dL (32.0-36.0); MEAN CORPUSCULAR HEMOGLOB 28.1 pg (26.0-34.0); MEAN PLATELET VOLUME 10.1 fL (9.2-13.0); MONOCYTES 12.5 %; MONOCYTES ABSOLUTE 0.42 10/3/uL (0.21-1.20); NEUTROPHILS 72.6 %; NEUTROPHILS ABSOLUTE 2.43 10/3/uL (2.02-8.40); RBC DISTRIBUTION WIDTH 21.3 % (12.0-16.0); RED CELL COUNT 3.56 10/6/uL (4.7-6.1)
[2016-10-31 17:20] LABS: MANUAL DIFF NO %; MEAN CORPUSCULAR VOLUME 89.6 fL (80-100); PLATELET COUNT 182 10/3/uL (150-400); WHITE BLOOD CELLS 3.4 10/3/uL (4.5-10.5)
[2016-10-31 17:27] LABS: INTERNATIONAL NORMAL RATI 1.2 UNITS (-); PROTIME (NOT ORD) 15.3 SEC (12.0-14.5)
[2016-10-31 17:34] LABS: BUN (BLOOD UREA NITROGEN) 16 MG/DL (6-23); CALCIUM, SERUM 7.3 MG/DL (8.5-10.4); CHLORIDE, SERUM 101 MMOL/L (96-112); CO2 (CARBON DIOXIDE) 31 MMOL/L (24-34); CREATININE 2.78 MG/DL (0.70-1.30); GFR AFRICAN AMERICAN 27 ML/MIN (>=60); GFR NON AFRICAN AMERICAN 23 ML/MIN (>=60); GLUCOSE, SERUM 72 MG/DL (60-99); POTASSIUM, SERUM 3.9 MMOL/L (3.5-5.3); SODIUM, SERUM 142 MMOL/L (135-148)
[2016-10-31 17:35] LABS: CHEST PAIN PROFILE TAT 0 Hrs 21 Mins; TROPONIN I 0.06 NG/ML (<0.05)
[2016-11-01 18:08] LABS: ASCORBIC ACID (UR NOT ORDER) NEG (NEG); BILIRUBIN, URINE NEGATIVE (NEG); KETONE, URINE NEGATIVE (NEG); LEUKOCYTE ESTERASE(NOT OR MOD (NEG)
[2016-11-01 18:09] LABS: WBC (NOT ORDERED) (RFLEX) > 182 (0-5)
[2016-11-02 14:09] LABS: BASOPHILS 0.4 %; BASOPHILS ABSOLUTE 0.01 10/3/uL (0.0-0.16); EOSINOPHILS 9.1 %; EOSINOPHILS ABSOLUTE 0.26 10/3/uL (0.0-0.53); HEMATOCRIT 26.2 % (40.0-51.0); HEMOGLOBIN 8.1 g/dL (13.6-17.8); IMMATURE GRANULOCYTES 0.4 %; IMMATURE GRANULOCYTES ABSOLUTE 0.01 10/3/uL (0.0-0.11); LYMPHOCYTES 9.5 %; LYMPHOCYTES ABSOLUTE 0.27 10/3/uL (0.67-4.30); MANUAL DIFF NO %; MEAN CORPUS HGB CONC 30.9 g/dL (32.0-36.0); MEAN CORPUSCULAR HEMOGLOB 27.9 pg (26.0-34.0); MEAN CORPUSCULAR VOLUME 90.3 fL (80-100); MEAN PLATELET VOLUME 9.4 fL (9.2-13.0); MONOCYTES ABSOLUTE 0.17 10/3/uL (0.21-1.20); NEUTROPHILS 74.6 %; NEUTROPHILS ABSOLUTE 2.13 10/3/uL (2.02-8.40); PLATELET COUNT 183 10/3/uL (150-400); RBC DISTRIBUTION WIDTH 20.9 % (12.0-16.0); WHITE BLOOD CELLS 2.9 10/3/uL (4.5-10.5)
[2016-11-02 14:17] LABS: INTERNATIONAL NORMAL RATI 1.6 UNITS (-); PROTIME (NOT ORD) 18.6 SEC (12.0-14.5)
[2016-11-02 14:22] LABS: CALCIUM, SERUM 7.3 MG/DL (8.5-10.4); CHLORIDE, SERUM 97 MMOL/L (96-112); POTASSIUM, SERUM 4.1 MMOL/L (3.5-5.3)
[2016-11-02 14:23] LABS: ALBUMIN 1.7 G/DL (3.5-5.0); BUN (BLOOD UREA NITROGEN) 30 MG/DL (6-23); CO2 (CARBON DIOXIDE) 25 MMOL/L (24-34); CREATININE 4.77 MG/DL (0.70-1.30); GFR AFRICAN AMERICAN 14 ML/MIN (>=60); GFR NON AFRICAN AMERICAN 12 ML/MIN (>=60); GLUCOSE, SERUM 315 MG/DL (60-99); PHOSPHORUS, SERUM 5.1 MG/DL (2.5-4.5); SODIUM, SERUM 134 MMOL/L (135-148)
[2016-11-03 05:38] LABS: INTERNATIONAL NORMAL RATI 1.5 UNITS (-); PROTIME (NOT ORD) 17.8 SEC (12.0-14.5)
[2016-11-03 08:36] LABS: BASOPHILS 0.2 %; BASOPHILS ABSOLUTE 0.01 10/3/uL (0.0-0.16); EOSINOPHILS 4.4 %; EOSINOPHILS ABSOLUTE 0.19 10/3/uL (0.0-0.53); HEMATOCRIT 25.9 % (40.0-51.0); HEMOGLOBIN 8.5 g/dL (13.6-17.8); IMMATURE GRANULOCYTES 0.7 %; IMMATURE GRANULOCYTES ABSOLUTE 0.03 10/3/uL (0.0-0.11); LYMPHOCYTES 20.9 %; LYMPHOCYTES ABSOLUTE 0.91 10/3/uL (0.67-4.30); MANUAL DIFF NO %; MEAN CORPUS HGB CONC 32.8 g/dL (32.0-36.0); MEAN CORPUSCULAR VOLUME 85.2 fL (80-100); MEAN PLATELET VOLUME 9.6 fL (9.2-13.0); MONOCYTES 9.4 %; MONOCYTES ABSOLUTE 0.41 10/3/uL (0.21-1.20); NEUTROPHILS 64.4 %; PLATELET COUNT 219 10/3/uL (150-400); RBC DISTRIBUTION WIDTH 20.5 % (12.0-16.0); RED CELL COUNT 3.04 10/6/uL (4.7-6.1); WHITE BLOOD CELLS 4.4 10/3/uL (4.5-10.5)
[2016-11-03 08:46] LABS: ALBUMIN 1.8 G/DL (3.5-5.0); CALCIUM, SERUM 7.6 MG/DL (8.5-10.4); CHLORIDE, SERUM 95 MMOL/L (96-112); GFR AFRICAN AMERICAN 13 ML/MIN (>=60); GFR NON AFRICAN AMERICAN 12 ML/MIN (>=60); GLUCOSE, SERUM 258 MG/DL (60-99); PHOSPHORUS, SERUM 5.5 MG/DL (2.5-4.5); POTASSIUM, SERUM 4.4 MMOL/L (3.5-5.3); SODIUM, SERUM 132 MMOL/L (135-148)
[2016-11-03 08:53] LABS: BUN (BLOOD UREA NITROGEN) 37 MG/DL (6-23); CO2 (CARBON DIOXIDE) 20 MMOL/L (24-34)
[2016-11-03] MEDS ORDERED: PCET PO (17:54)
[2016-11-03] MEDS ORDERED: LEVAQUIN750 MG PO (17:55)
[2016-11-03] MEDS ORDERED: FLAG500TAB PO (17:55)
[2016-12-02] MEDS ORDERED: PCET PO ×2 (13:27→16:57)
[2017-03-23] MEDS ORDERED: SYN125 PO (18:57)
[2017-03-23] MEDS ORDERED: LIPITOR40 PO (18:57)
[2017-03-23] MEDS ORDERED: HALF81 PO (18:57)
[2017-03-23] MEDS ORDERED: P10 PO (18:57)
[2017-03-23] MEDS ORDERED: NEUR300 PO (18:57)
[2017-03-23] MEDS ORDERED: PLAVIX PO (18:57)
[2017-03-23] MEDS ORDERED: Z100 PO (18:57)
[2017-03-23] MEDS ORDERED: HUMALOG SC (18:58)
[2017-03-23] MEDS ORDERED: NITROSTAT0.4 MG SL (18:58)
[2017-03-23] MEDS ORDERED: LANTUS SC (18:58)
[2017-03-23] MEDS ORDERED: COREG6 PO (18:58)
[2017-03-23] MEDS ORDERED: VANCO1P IV (18:59)
[2017-03-23] MEDS ORDERED: NORCO1 TAB PO (18:59)
[2017-03-23] MEDS ORDERED: FORTAZ IV (19:00)
[2017-04-05] MEDS ORDERED: FLUCON1 PO (13:48)
[2017-04-06] MEDS ORDERED: NYSTATPOW TOP (16:13)
[2017-04-06] MEDS ORDERED: VANCO500 IV (16:14)
[2017-04-29] MEDS ORDERED: ATV.5 PO (22:08)
[2017-05-02] MEDS ORDERED: PROTONIX PO (16:43)
[2017-05-02] MEDS ORDERED: LEVAQUIN5T PO (16:44)
[2017-05-02] MEDS ORDERED: CARASPUDL PO (16:48)
== END 2016-11-03 18:32 | disposition home or self-care (01) | DRG 146 ==
LOC: ER 19:00 → 2SO 11-01 00:45
PROVIDERS: Hospitalist; Internal Medicine Nephrology; Nurse Practitioner
PROC: 0J943ZX Drainage of Right Neck Subcutaneous Tissue and Fascia, Percutaneous Approach, Diagnostic (ICD-10-PCS; principal; 2016-11-01)
PROC: 02HV33Z Insertion of Infusion Device into Superior Vena Cava, Percutaneous Approach (ICD-10-PCS; 2016-11-02)
PROC: 4A02X4A Measurement of Cardiac Electrical Activity, Guidance, External Approach (ICD-10-PCS; 2016-11-02)
PROC: 5A1D60Z (ICD-10-PCS; 2016-11-03)
DX: C09.9 Malignant neoplasm of tonsil, unspecified (principal); N18.6 End stage renal disease; J90 Pleural effusion, not elsewhere classified; I70.268 Atherosclerosis of native arteries of extremities with gangrene, other extremity; Z94.83 Pancreas transplant status; C79.89 Secondary malignant neoplasm of other specified sites; Z94.0 Kidney transplant status; K57.32 Diverticulitis of large intestine without perforation or abscess without bleeding; I25.10 Atherosclerotic heart disease of native coronary artery without angina pectoris; E10.9 Type 1 diabetes mellitus without complications; W19.XXXA Unspecified fall, initial encounter; E03.9 Hypothyroidism, unspecified; E78.5 Hyperlipidemia, unspecified; R15.9 Full incontinence of feces; I25.2 Old myocardial infarction; Z90.49 Acquired absence of other specified parts of digestive tract; Z98.890 Other specified postprocedural states; Z80.49 Family history of malignant neoplasm of other genital organs; Z80.0 Family history of malignant neoplasm of digestive organs; Z82.49 Family history of ischemic heart disease and other diseases of the circulatory system; Z83.3 Family history of diabetes mellitus; Z79.82 Long term (current) use of aspirin; Z79.02 Long term (current) use of antithrombotics/antiplatelets; Z79.4 Long term (current) use of insulin; Z79.01 Long term (current) use of anticoagulants; I73.9 Peripheral vascular disease, unspecified; K62.89 Other specified diseases of anus and rectum; I99.8 Other disorder of circulatory system
CPT/HCPCS: 36569; 70450; 70490; 70498; 71020; 72131; 72192; 80048; 80069; 81001; 82962; 83735; 84484; 85025; 85610; 85730; 87040; 87077; 87086; 87186; 88172; 88173; 88305; 88342; 93005; 99291; A9270-GY; C1751; G0257; J1170; J1956; J2405; J2550; J3010; J3370; P9047; Q9967

== ENCOUNTER 2016-11-04 17:40 | Inpatient (IN) | payer OTHER ==
--- NOTE | ~2016-11-04 | DS ---
Discharge Summary [facility] [address] [facility] [place]. [address] NAME: JASON LUIS : 55 STATUS : DIS IN PAT#: [id number] AGE: 61 ADM/REG DATE : 11/04/16 MR#: [id number] REPORT SERV DATE: 11/15/16 DICTATED BY: KIM VALLADARES DATE: 11/14/16 REPORT STATUS : Draft TRANSCRIBED BY: LAYLA DATE: 11/14/16 Data Collection from hospitalization DISCHARGE DIAGNOSES: 1. End-stage renal disease. 2. 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 3. Gastrointestinal bleed. 4. Adult-onset diabetes mellitus. 5. Peripheral vascular disease. 6. Failure to thrive. 7. Chronic anticoagulation. 8. History of failed kidney transplant. 9. History of pancreas transplant. 10.Coronary artery disease. 11.Hypothyroidism. 12.Anemia of chronic disease. CONSULTATIONS: SKIP Francis PROCEDURES PERFORMED: Upper GI endoscopy on 11/05/2016. PATHOLOGY: Duodenum bulb biopsy - chronic duodenitis. Stomach antrum biopsy - antral-type mucosa with mild chronic and focally active gastritis. No intestinal metaplasia or dysplasia. Immunohistochemistry for H. pylori negative. MEDICATIONS: Zyloprim 100 mg daily, aspirin 81 mg at bedtime, Lipitor 40 mg at bedtime, Coreg 6.25 mg daily, Plavix 75 mg daily, Neurontin 300 mg daily, Lantus 24 units subcutaneously daily, Humalog injection insulin as instructed, Levaquin 750 mg every 48 hours, Levothroid 125 mcg daily, Flagyl 500 mg every eight hours, Nitrostat 0.4 mg sublingually as needed, Percocet one tablet every four hours as needed, Protonix 40 mg twice a day, and Deltasone 5 mg daily. CONDITION AT DISCHARGE: Stable. DISPOSITION: The patient was discharged home on a renal-diabetic diet with activities as instructed. He would follow up with his primary care provider as needed. HOSPITAL COURSE: This is a 61-year-old man who was dismissed from this facility less than 24 hours prior to this admission. He had an episode of what was described as coffee-grounds emesis. He returned to the emergency room. He had one episode of emesis while in the waiting room awaiting triage. His hemoglobin was stable. It was felt that he would need observation and consideration of GI blood loss. He was admitted to the hospital for further evaluation and treatment. Upon admission, creatinine level was 4.7. IV fluids were started. Aspirin was held as well as Plavix and warfarin. IV Protonix was given. The following day, he was seen by Zev Wilder for evaluation and management of melanotic stools and coffee-grounds emesis. The patient said that he had a loose bowel movement on the day of admission that Discharge Summary [place] [address] [facility] [place] [address] NAME: JAOSN LUIS : 55 STATUS : DIS IN PAT#: [id number] AGE: 61 ADM/REG DATE : 11/04/16 MR#: [id number] REPORT SERV DATE: 11/15/16 DICTATED BY: KIM VALLADARES DATE: 11/14/16 REPORT STATUS : Draft TRANSCRIBED BY: LAYLA DATE: 11/14/16 was dark and tarry. He denied abdominal pain. INR level was 1.6. His nausea and vomiting had improved at the present time. It was felt that he would need to undergo EGD for further definitive diagnosis of peptic ulcer disease versus AVM versus any malignancy. He remained n.p.o. Stool studies were going to be obtained. He was taken to the endoscopic suite by Dr. Raul Kerr where he underwent the above-mentioned upper GI endoscopy. He had LA grade D erosive esophagitis. Gastritis was seen and biopsied. There was a duodenal ulcer with a clean base, which was also biopsied. H and H remained stable. Hemodialysis therapy was performed. On 11/06/2016, he said he was feeling better. He was tolerating clear liquid diet without nausea or vomiting. He had no abdominal pain. His diet was advanced. Carafate was added. Discharge planning was performed. Aspirin and Plavix were restarted. On 11/07/2016, he was in no acute distress. Dialysis therapy continued. Coumadin had been stopped. He was evaluated by Physical Therapy. Discharge instructions were given. Due to his improved and stable condition, he was discharged home with the above-stated instructions. Information collected by: So Burns I submit the above information as my discharge summary. GERMÁN/LAYLA Kim Valladares M.D. / [id number] CC: Steve Telles M.D. Zev SKIP Wilder
--- NOTE | ~2016-11-04 | CN ---
Consultation Report [facility] [address] [place]. [address] NAME: JASON LUIS : 55 STATUS : ADM IN PAT#: [id number] AGE: 61 ADM/REG DATE : 11/04/16 MR#: [id number] REPORT SERV DATE: 11/05/16 DICTATED BY: BUD GARCIA DATE: 11/05/16 REPORT STATUS : Draft TRANSCRIBED BY: MODL DATE: 11/05/16 GI CONSULTATION DATE OF CONSULTATION: 11/05/2016 REASON FOR CONSULTATION: Evaluation and management of melanotic stools and coffee-grounds emesis. HISTORY OF PRESENT ILLNESS: The patient is a 61-year-old male patient we have received on unattached call to evaluate for these above complaints. He has a history of recent hospitalization at [facility] for right neck mass, found to have stage JEFF squamous cell carcinoma of the right tonsil. He was actually just discharged on the , states that he felt well, he woke on Saturday morning, and he states that he had nothing but nausea and vomiting. He vomited up coffee-grounds emesis on multiple occasions. He states he had a loose bowel movement yesterday, it was also dark and tardy. He denies any abdominal pain. He has a history of coronary artery disease, on Plavix and aspirin; hypothyroidism; failed kidney transplant; end-stage renal disease, on dialysis; as well as peripheral vascular disease. He has noted Plavix and Coumadin but has not taken that in two days. His INR is 1.6. He states that he has improved with his symptoms of nausea and vomiting at present. I have discussed with him though we will take him to the GI lab for EGD today for further definitive diagnosis of peptic ulcer disease versus AVMs versus any malignancy. 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 PAST SURGICAL HISTORY: Cholecystectomy, kidney and pancreas transplant, right IJ placement, and forearm looped AV graft. SOCIAL HISTORY: , disabled, and retired. Does not smoke, drink, or use illicit drugs. FAMILY HISTORY: Positive for colon cancer in his father. ALLERGIES: TO NOTHING. MEDICATIONS: Home medications are Zyloprim, aspirin, Lipitor, Coreg, Plavix, Neurontin, Lantus, Humalog, Levaquin, levothyroxine, Flagyl, nitroglycerin, Percocet, prednisone, and Coumadin. REVIEW OF SYSTEMS: Consultation Report [place] [address] [place]. [address] NAME: JASON LUIS : 55 STATUS : ADM IN PAT#: [id number] AGE: 61 ADM/REG DATE : 11/04/16 MR#: [id number] REPORT SERV DATE: 11/05/16 DICTATED BY: BUD GARCIA DATE: 11/05/16 REPORT STATUS : Draft TRANSCRIBED BY: LAYLA DATE: 11/05/16 A 10-point review of systems was obtained, pertinent positives addressed in the history of present illness. VITAL SIGNS: Temperature 98, pulse 80, respirations 16, and blood pressure 94/56. PERTINENT LABORATORY DATA: Sodium 136, potassium 4.6, BUN 40, creatinine 4.7, white count 5, hemoglobin 9, hematocrit 28.9, and INR 1.6. Discharge hemoglobin was 8.5. Pending labs for today have not been taken or resulted. PHYSICAL EXAMINATION: NEUROLOGIC: Reveals a chronically ill-appearing male, who awakens to name. He is in no obvious acute distress. GENERAL: He is cooperative. He is oriented x3. HEENT: Head, ears, eyes, nose, and throat are anicteric. Pupils are equal, round, and reactive to light accommodation. Normocephalic and atraumatic. NECK: He has notable right neck swelling. LUNGS: Decreased throughout. Normal respiratory effort exhibited. Equal expansion. CARDIOVASCULAR SYSTEM: Regular rate and rhythm. ABDOMEN: Soft and round, nondistended, and nontender with active bowel sounds in all four quadrants. No organomegaly appreciated. EXTREMITIES: He has bilateral lower extremity edema as well as notable ischemic toes on both feet. SKIN: Warm, dry, and intact. ASSESSMENT AND PLAN: 1. Melena with coffee-ground emesis x24 hours. 2. Nausea and vomiting. 3. Recent diagnosis of head and neck cancer, right neck mass, diagnosis stage JEFF squamous cell carcinoma of the right tonsil. 4. Peripheral vascular disease, questionable bilateral extremity amputation pending. 5. Type 2 diabetes. 6. End-stage renal disease, on dialysis. 7. History of failed kidney and pancreas transplant. 8. History of Plavix, aspirin, and Coumadin. PLAN: 1. Continue n.p.o. 2. Stool studies. 3. EGD today. 4. Follow H and H. Other recommendations to follow endoscopy. DESHAUN/LAYLA Consultation Report [place] [id number] [place]. [id number] NAME: JASON LUIS : 55 STATUS : ADM IN [facility]#: [id number] AGE: 61 ADM/REG DATE : 11/04/16 MR#: [id number] REPORT SERV DATE: 11/05/16 DICTATED BY: BUD GARCIA DATE: 11/05/16 REPORT STATUS : Draft TRANSCRIBED BY: LAYLA DATE: 11/05/16 SKIP Francis / [id number] CC: Steve Telles M.D.
--- NOTE | ~2016-11-04 | HP ---
History And Physical [address] [place]. [address] NAME: JASON LUIS : 55 STATUS : ADM IN PAT#: [id number] AGE: 61 ADM/REG DATE : 11/04/16 MR#: [id number] REPORT SERV DATE: 11/05/16 DICTATED BY: MAGGIE LAWS JR DATE: 11/04/16 REPORT STATUS : Draft TRANSCRIBED BY: LAYLA DATE: 11/04/16 DATE OF ADMISSION: 11/04/2016 LOCATION: [facility], room 211. CHIEF COMPLAINT: Reported coffee-ground emesis. HISTORY: Gentleman was dismissed from this facility less than 24 hours ago. Had an episode of what was described as coffee-ground emesis and returns to the emergency room. One episode of emesis while in the waiting room awaiting triage. Seen and evaluated. Stable hemoglobin, but was admitted for observation and consideration of GI blood loss. PAST MEDICAL HISTORY: 1. AODM. 2. Peripheral vascular disease, facing probable amputation of the bilateral lower extremities. 3. Recent definition of squamous cell cancer of the right neck. 4. Failure to thrive. 5. Chronic anticoagulation. 6. End-stage renal disease. 7. History of failed kidney transplant. 8. Pancreas transplant. 9. Coronary artery disease. 10.Diabetes. 11.Hypothyroidism, on replacement. 12.Anemia of chronic disease. 13.Peripheral vascular disease. 14.Cholecystectomy. 15.Kidney, pancreas transplant. 16.Cholecystectomy. 17.Right internal jugular dialysis catheter placement. 18.Forearm loop AV graft. 19.Hyperlipidemia. 20.Bilateral cataract extraction. FAMILY HISTORY: Negative for early coronary heart disease or sudden cardiac . Negative for kidney disease. Positive for diabetes. SOCIAL HISTORY: . No significant history of tobacco, alcohol, or drug use. 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 REVIEW OF SYSTEMS: CONSTITUTIONAL: He is very lethargic and difficult to interview, but does not acknowledge other head and neck complaints besides the neck cancer on the right side. HEENT: Does not seem to acknowledge headache, difficulty swallowing, or decreased range of motion of the neck. History And Physical [address] [place]. [address] NAME: JASON LUIS : 55 STATUS : ADM IN PAT#: [id number] AGE: 61 ADM/REG DATE : 11/04/16 MR#: [id number] REPORT SERV DATE: 11/05/16 DICTATED BY: MAGGIE LAWS JR DATE: 11/04/16 REPORT STATUS : Draft TRANSCRIBED BY: LAYLA DATE: 11/04/16 LUNGS: He denies chest pain or palpitations. Denies shortness of breath or cough. Denies hemoptysis. ABDOMEN: Denies abdominal pain, constipation or diarrhea, but does acknowledge the reported coffee-ground emesis, though he was not able to feed himself. GENITOURINARY: No micturition. MUSCULOSKELETAL: Lower extremity edema. Painful distal lower extremities with underperfusion, hyperemia, and pain. NEUROLOGIC: Generalized weakness, difficulty with performance of activities of daily living. PSYCHIATRIC: Had no acknowleged complaint. PHYSICAL EXAMINATION: GENERAL: Very chronically ill, somnolent male, who awakens from sleep, interacts poorly and is in no acute distress. HEENT: Cranium grossly normocephalic. Male pattern hair loss. Solar cutaneous changes of the skin. Equal pupils. No icterus is appreciated. No nasal discharge. Nares are normal. Dry mucous membranes. Facial symmetry is present. NECK: No carotid bruits not heard. Neck vein distention not seen. Palpable mass, right neck in vicinity of the strap muscles. Thyromegaly is not felt. LUNGS: Symmetrical air entry, weak effort. No adventitial sounds. No increased work of breathing. HEART: Tones regular without audible rub or gallop. ABDOMEN: Presently soft and nontender. Bowel sounds are heard. Liver edge is not felt. No mass, guarding, or tenderness appreciated. : Rectal is not performed. Genitalia deferred. EXTREMITIES: He has 1+ edema bilaterally with slight asymmetry, left side greater than right. He has hyperemia of the distal forefeet on both sides. Pulses are palpably diminished. NEUROLOGIC: Cognition difficult to assess due to his level of cooperation. Moves extremities satisfactorily. Strength is not observed. Gait is not tested. Neurologically, he seems to have diminished sensation in the feet distally. PSYCHIATRIC: Cannot affect. LABORATORY DATA: The white count is 5000, hemoglobin 9, comparable to values at dismissal; platelets 328. Blood gas 7.38/33/83/95 on room air. Sodium 136, potassium 4.6, creatinine 4.7, nonfasting glucose 497, and albumin 3.5. Transaminases not elevated. ASSESSMENT: 1. Reported coffee-ground emesis, not proven by this examiner. 2. Stable hemoglobin. 3. Multiple comorbidities, see list above. PLAN: Admit to hospital; Gastroenterology consultation; IV fluids; parental Protonix; hold aspirin, Plavix, and warfarin; serial hemoglobin. Defer DVT prophylaxis for now. History And Physical [address] [address] NAME: JASON LUIS : 55 STATUS : ADM IN [facility]#: [id number] AGE: 61 ADM/REG DATE : 11/04/16 MR#: [id number] REPORT SERV DATE: 11/05/16 DICTATED BY: MAGGIE LAWS JR DATE: 11/04/16 REPORT STATUS : Draft TRANSCRIBED BY: LAYLA DATE: 11/04/16 DF/LAYLA Maggie Laws Jr, M.D. / [id number] CC: Steve Telles M.D.
--- NOTE | ~2016-11-04 | EGD ---
EGD REPORT [facility] [address] [address] NAME: JASON LUIS : 55 STATUS : ADM IN PAT#: [id number] AGE: 61 ADM/REG DATE : 11/04/16 MR#: [id number] REPORT SERV DATE: 11/05/16 DICTATED BY: RAUL CHAVEZ DATE: 11/05/16 REPORT STATUS : Draft TRANSCRIBED BY: [facility] DATE: 11/05/16 Endoscopy Center Patient Name: Jason Luis Date of : 1955 Attending MD: RAUL CHAVEZ MD Procedure Date No Time: 11/05/2016 Procedure: Upper GI endoscopy Indications: Coffee-ground emesis Referring MD: MAGGIE ENCINAS MD Medicines: Monitored Anesthesia Care Complications: No immediate complications. Estimated blood loss: Minimal. Procedure: After obtaining informed consent, the endoscope was passed under direct vision. Throughout the procedure, the patient's blood pressure, pulse, and oxygen saturations were monitored continuously. The GIF [id number] was introduced through the mouth, and advanced to the second part of duodenum. The upper GI endoscopy was accomplished without difficulty. The patient tolerated the procedure well. Findings: LA Grade D (one or more mucosal breaks involving at least 75% of esophageal circumference) esophagitis with no bleeding was found in the entire esophagus. Localized mild inflammation characterized by congestion (edema), erythema and linear erosions was found in the gastric antrum. Biopsies were taken with a cold forceps for Helicobacter pylori testing. Estimated blood loss was minimal. One non-bleeding cratered duodenal ulcer with no stigmata of bleeding was found in the duodenal bulb. The lesion was 9 mm in largest dimension. Biopsies were taken with a cold forceps for histology. Estimated blood loss was minimal. The cardia and gastric fundus were normal on retroflexion. Impression: - LA Grade D erosive esophagitis. - Gastritis. Biopsied. - One duodenal ulcer with clean base. Biopsied. Recommendation: - Return patient to hospital [facility] for ongoing care. - Clear liquid diet today. - Await pathology results. - Use Protonix (pantoprazole) 40 mg PO BID for 8 weeks. Procedure Code(s): --- Professional --- EGD REPORT [address] [address] NAME: JASON LUIS : 55 STATUS : ADM IN [facility]#: [id number] AGE: 61 ADM/REG DATE : 11/04/16 MR#: [id number] REPORT SERV DATE: 11/05/16 DICTATED BY: RAUL CHAVEZ DATE: 11/05/16 REPORT STATUS : Draft TRANSCRIBED BY: [employer] DATE: 11/05/16 [id number], Esophagogastroduodenoscopy, flexible, transoral; with biopsy, single or multiple Diagnosis Code(s): --- Professional --- K20.8, Other esophagitis K29.70, Gastritis, unspecified, without bleeding K26.9, Duodenal ulcer, unspecified as acute or chronic, without hemorrhage or perforation K92.0, Hematemesis CPT copyright 2013 [employer]. All rights reserved. The codes documented in this report are preliminary and upon assistant project manager review may be revised to meet current compliance requirements. Raul Chavez MD RAUL CHAVEZ MD 11/05/2016 10:23 AM This report has been signed electronically. Number of Addenda: 0 Note Initiated On: 11/05/2016 9:56 AM Scope Withdrawal Time 0 hours 0 minutes 0 seconds [address] [place] [address]
[2016-11-04 16:11] LABS: BASOPHILS 0.2 %; BASOPHILS ABSOLUTE 0.01 10/3/uL (0.0-0.16); EOSINOPHILS 1.4 %; EOSINOPHILS ABSOLUTE 0.07 10/3/uL (0.0-0.53); ER CBC TAT 0 Hrs 05 Mins; IMMATURE GRANULOCYTES 1.6 %; IMMATURE GRANULOCYTES ABSOLUTE 0.08 10/3/uL (0.0-0.11); LYMPHOCYTES 9.9 %; LYMPHOCYTES ABSOLUTE 0.49 10/3/uL (0.67-4.30); MANUAL DIFF NO %; MEAN CORPUSCULAR HEMOGLOB 27.9 pg (26.0-34.0); MEAN CORPUSCULAR VOLUME 89.8 fL (80-100); MEAN PLATELET VOLUME 9.2 fL (9.2-13.0); MONOCYTES 12.5 %; MONOCYTES ABSOLUTE 0.62 10/3/uL (0.21-1.20); NEUTROPHILS 74.4 %; NEUTROPHILS ABSOLUTE 3.69 10/3/uL (2.02-8.40); PLATELET COUNT 328 10/3/uL (150-400); RBC DISTRIBUTION WIDTH 20.9 % (12.0-16.0); RED CELL COUNT 3.23 10/6/uL (4.7-6.1)
[2016-11-04 16:25] LABS: BUN (BLOOD UREA NITROGEN) 40 MG/DL (6-23); CHLORIDE, SERUM 96 MMOL/L (96-112); CO2 (CARBON DIOXIDE) 18 MMOL/L (24-34); GFR AFRICAN AMERICAN 14 ML/MIN (>=60); GFR NON AFRICAN AMERICAN 12 ML/MIN (>=60); POTASSIUM, SERUM 4.6 MMOL/L (3.5-5.3); SGOT(AST) 21 U/L (5-40); SGPT(ALT) 30 U/L (5-65); SODIUM, SERUM 136 MMOL/L (135-148); TOTAL BILIRUBIN 0.6 MG/DL (0-1.2)
[2016-11-04 16:26] LABS: A/G RATIO 0.6 (0.7-1.9); ALBUMIN 2.5 G/DL (3.5-5.0); ALKALINE PHOSPHATASE 251 U/L (45-117); CALCIUM, SERUM 8.6 MG/DL (8.5-10.4); GLOBULIN 3.9 G/DL (2.5-4.1); GLUCOSE, SERUM 497 MG/DL (60-99); TOTAL PROTEIN 6.4 G/DL (6.0-8.5)
[2016-11-04 16:37] LABS: INTERNATIONAL NORMAL RATI 1.6 UNITS (-); PARTIAL THROMBO TIME 42.4 SEC (22.5-37.2); PROTIME (NOT ORD) 18.9 SEC (12.0-14.5)
[~2016-11-04 17:40] MED LIST changes: +FLAG500TAB PO; +LEVAQUIN750 MG PO; +PCET PO
[2016-11-04 18:54] LABS: ALLENS TEST Pos; BE (BASE EXCESS) -5.3 MEQ/L (0 +/- 2.5); CARBOXYHEMOGLOBIN 1.2 % (0-3); HCO3 (ACTUAL BICARBONATE) 19.1 MEQ/L (23-27); HEMOBLOGIN CONTENT 9.6 G/DL (14-18); INSTRUMENT SERIAL # 8087; O2 CONTENT 12.8 VOL% (18-24); OPERATOR ID 14335; PCO2 (CO2 TENSION) 33 MMHG (35-45); PO2 (O2 TENSION) 83 MMHG (79-93); SAMPLE Arterial; pH 7.38 (7.37-7.43)
[2016-11-04 21:46] LABS: HEMATOCRIT 28.9 % (40.0-51.0)
[2016-11-05 09:24] LABS: BASOPHILS 0.3 %; BASOPHILS ABSOLUTE 0.01 10/3/uL (0.0-0.16); EOSINOPHILS 5.8 %; EOSINOPHILS ABSOLUTE 0.23 10/3/uL (0.0-0.53); HEMATOCRIT 26.7 % (40.0-51.0); HEMOGLOBIN 8.7 g/dL (13.6-17.8); IMMATURE GRANULOCYTES 0.8 %; IMMATURE GRANULOCYTES ABSOLUTE 0.03 10/3/uL (0.0-0.11); LYMPHOCYTES 19.3 %; LYMPHOCYTES ABSOLUTE 0.77 10/3/uL (0.67-4.30); MEAN CORPUSCULAR HEMOGLOB 28.2 pg (26.0-34.0); MEAN PLATELET VOLUME 8.5 fL (9.2-13.0); MONOCYTES 13.3 %; MONOCYTES ABSOLUTE 0.53 10/3/uL (0.21-1.20); NEUTROPHILS 60.5 %; NEUTROPHILS ABSOLUTE 2.41 10/3/uL (2.02-8.40); PLATELET COUNT 284 10/3/uL (150-400); RBC DISTRIBUTION WIDTH 20.7 % (12.0-16.0); RED CELL COUNT 3.08 10/6/uL (4.7-6.1)
[2016-11-05 09:26] LABS: MANUAL DIFF NO %; MEAN CORPUS HGB CONC 32.6 g/dL (32.0-36.0); MEAN CORPUSCULAR VOLUME 86.7 fL (80-100)
[2016-11-05 09:35] LABS: BUN (BLOOD UREA NITROGEN) 41 MG/DL (6-23); CALCIUM, SERUM 8.2 MG/DL (8.5-10.4); CHLORIDE, SERUM 102 MMOL/L (96-112); CO2 (CARBON DIOXIDE) 24 MMOL/L (24-34); CREATININE 4.93 MG/DL (0.70-1.30); GFR AFRICAN AMERICAN 14 ML/MIN (>=60); GFR NON AFRICAN AMERICAN 12 ML/MIN (>=60); GLUCOSE, SERUM 162 MG/DL (60-99); POTASSIUM, SERUM 3.9 MMOL/L (3.5-5.3); SODIUM, SERUM 139 MMOL/L (135-148)
[2016-11-05 15:38] LABS: HEMOGLOBIN 9.7 g/dL (13.6-17.8)
[2016-11-05 22:25] LABS: HEMATOCRIT 26.1 % (40.0-51.0); HEMOGLOBIN 8.3 g/dL (13.6-17.8)
[2016-11-06 07:12] LABS: BASOPHILS 0.3 %; BASOPHILS ABSOLUTE 0.01 10/3/uL (0.0-0.16); EOSINOPHILS 3.1 %; HEMOGLOBIN 8.8 g/dL (13.6-17.8); IMMATURE GRANULOCYTES 2.2 %; IMMATURE GRANULOCYTES ABSOLUTE 0.07 10/3/uL (0.0-0.11); LYMPHOCYTES 22.5 %; LYMPHOCYTES ABSOLUTE 0.73 10/3/uL (0.67-4.30); MEAN CORPUS HGB CONC 31.4 g/dL (32.0-36.0); MEAN CORPUSCULAR HEMOGLOB 27.8 pg (26.0-34.0); MEAN CORPUSCULAR VOLUME 88.6 fL (80-100); MEAN PLATELET VOLUME 8.8 fL (9.2-13.0); MONOCYTES 15.1 %; MONOCYTES ABSOLUTE 0.49 10/3/uL (0.21-1.20); NEUTROPHILS 56.8 %; NEUTROPHILS ABSOLUTE 1.84 10/3/uL (2.02-8.40); PLATELET COUNT 262 10/3/uL (150-400); RBC DISTRIBUTION WIDTH 21.2 % (12.0-16.0); RED CELL COUNT 3.16 10/6/uL (4.7-6.1); WHITE BLOOD CELLS 3.2 10/3/uL (4.5-10.5)
[2016-11-06 07:15] LABS: MANUAL DIFF NO %
[2016-11-06 07:18] LABS: INTERNATIONAL NORMAL RATI 1.7 UNITS (-); PROTIME (NOT ORD) 19.8 SEC (12.0-14.5)
[2016-11-06 07:24] LABS: ALBUMIN 2.1 G/DL (3.5-5.0); BUN (BLOOD UREA NITROGEN) 22 MG/DL (6-23); CALCIUM, SERUM 7.9 MG/DL (8.5-10.4); CHLORIDE, SERUM 106 MMOL/L (96-112); CO2 (CARBON DIOXIDE) 24 MMOL/L (24-34); CREATININE 3.64 MG/DL (0.70-1.30); GFR AFRICAN AMERICAN 20 ML/MIN (>=60); GFR NON AFRICAN AMERICAN 17 ML/MIN (>=60); GLUCOSE, SERUM 184 MG/DL (60-99); PHOSPHORUS, SERUM 3.8 MG/DL (2.5-4.5); POTASSIUM, SERUM 4.1 MMOL/L (3.5-5.3); SODIUM, SERUM 142 MMOL/L (135-148)
[2016-11-06 10:50] LABS: HEMATOCRIT 30.2 % (40.0-51.0); HEMOGLOBIN 9.5 g/dL (13.6-17.8)
[2016-11-07 08:34] LABS: BASOPHILS 0.3 %; BASOPHILS ABSOLUTE 0.01 10/3/uL (0.0-0.16); EOSINOPHILS 3.3 %; EOSINOPHILS ABSOLUTE 0.13 10/3/uL (0.0-0.53); HEMATOCRIT 27.2 % (40.0-51.0); HEMOGLOBIN 8.6 g/dL (13.6-17.8); IMMATURE GRANULOCYTES 3.1 %; IMMATURE GRANULOCYTES ABSOLUTE 0.12 10/3/uL (0.0-0.11); LYMPHOCYTES 19.9 %; LYMPHOCYTES ABSOLUTE 0.78 10/3/uL (0.67-4.30); MANUAL DIFF NO %; MEAN CORPUS HGB CONC 31.6 g/dL (32.0-36.0); MEAN CORPUSCULAR HEMOGLOB 27.8 pg (26.0-34.0); MEAN PLATELET VOLUME 8.4 fL (9.2-13.0); MONOCYTES 10.5 %; MONOCYTES ABSOLUTE 0.41 10/3/uL (0.21-1.20); NEUTROPHILS 62.9 %; NEUTROPHILS ABSOLUTE 2.46 10/3/uL (2.02-8.40); PLATELET COUNT 230 10/3/uL (150-400); RBC DISTRIBUTION WIDTH 21.5 % (12.0-16.0); RED CELL COUNT 3.09 10/6/uL (4.7-6.1); WHITE BLOOD CELLS 3.9 10/3/uL (4.5-10.5)
[2016-11-07 08:45] LABS: CALCIUM, SERUM 7.6 MG/DL (8.5-10.4); CHLORIDE, SERUM 102 MMOL/L (96-112); CO2 (CARBON DIOXIDE) 26 MMOL/L (24-34); PHOSPHORUS, SERUM 3.6 MG/DL (2.5-4.5); POTASSIUM, SERUM 3.8 MMOL/L (3.5-5.3); SODIUM, SERUM 136 MMOL/L (135-148)
[2016-11-07 08:46] LABS: BUN (BLOOD UREA NITROGEN) 28 MG/DL (6-23); CREATININE 4.68 MG/DL (0.70-1.30); GFR AFRICAN AMERICAN 15 ML/MIN (>=60); GFR NON AFRICAN AMERICAN 13 ML/MIN (>=60); GLUCOSE, SERUM 290 MG/DL (60-99)
[2016-11-07] MEDS ORDERED: PROTONIX PO (14:19)
[2016-12-02] MEDS ORDERED: PCET PO ×2 (13:27→16:57)
[2017-03-23] MEDS ORDERED: SYN125 PO (18:57)
[2017-03-23] MEDS ORDERED: Z100 PO (18:57)
[2017-03-23] MEDS ORDERED: PLAVIX PO (18:57)
[2017-03-23] MEDS ORDERED: HALF81 PO (18:57)
[2017-03-23] MEDS ORDERED: P10 PO (18:57)
[2017-03-23] MEDS ORDERED: NEUR300 PO (18:57)
[2017-03-23] MEDS ORDERED: LIPITOR40 PO (18:57)
[2017-03-23] MEDS ORDERED: NITROSTAT0.4 MG SL (18:58)
[2017-03-23] MEDS ORDERED: HUMALOG SC (18:58)
[2017-03-23] MEDS ORDERED: LANTUS SC (18:58)
[2017-03-23] MEDS ORDERED: COREG6 PO (18:58)
[2017-03-23] MEDS ORDERED: NORCO1 TAB PO (18:59)
[2017-03-23] MEDS ORDERED: VANCO1P IV (18:59)
[2017-03-23] MEDS ORDERED: FORTAZ IV (19:00)
[2017-04-05] MEDS ORDERED: FLUCON1 PO (13:48)
[2017-04-06] MEDS ORDERED: NYSTATPOW TOP (16:13)
[2017-04-06] MEDS ORDERED: VANCO500 IV (16:14)
[2017-04-29] MEDS ORDERED: ATV.5 PO (22:08)
[2017-05-02] MEDS ORDERED: PROTONIX PO (16:43)
[2017-05-02] MEDS ORDERED: LEVAQUIN5T PO (16:44)
[2017-05-02] MEDS ORDERED: CARASPUDL PO (16:48)
== END 2016-11-07 15:29 | disposition home or self-care (01) | DRG 377 ==
LOC: ER 17:40 → 2SO 18:24
PROVIDERS: Emergency Medicine; Internal Medicine Nephrology; Nurse Practitioner Family; Registered Nurse
PROC: 05HM33Z Insertion of Infusion Device into Right Internal Jugular Vein, Percutaneous Approach (ICD-10-PCS; principal; 2016-10-31)
PROC: 5A1D60Z (ICD-10-PCS; 2016-11-05)
PROC: 0DB68ZX Excision of Stomach, Via Natural or Artificial Opening Endoscopic, Diagnostic (ICD-10-PCS; 2016-11-05)
PROC: 0DB98ZX Excision of Duodenum, Via Natural or Artificial Opening Endoscopic, Diagnostic (ICD-10-PCS; 2016-11-05)
DX: K92.2 Gastrointestinal hemorrhage, unspecified (principal); N18.6 End stage renal disease; E11.22 Type 2 diabetes mellitus with diabetic chronic kidney disease; N17.9 Acute kidney failure, unspecified; N18.4 Chronic kidney disease, stage 4 (severe); I50.9 Heart failure, unspecified; C09.9 Malignant neoplasm of tonsil, unspecified; B37.9 Candidiasis, unspecified; E03.9 Hypothyroidism, unspecified; R62.7 Adult failure to thrive; I12.0 Hypertensive chronic kidney disease with stage 5 chronic kidney disease or end stage renal disease; K29.70 Gastritis, unspecified, without bleeding; K29.80 Duodenitis without bleeding; K26.9 Duodenal ulcer, unspecified as acute or chronic, without hemorrhage or perforation; I70.298 Other atherosclerosis of native arteries of extremities, other extremity; K59.00 Constipation, unspecified; E78.5 Hyperlipidemia, unspecified; D64.9 Anemia, unspecified; K20.8 Other esophagitis; M06.9 Rheumatoid arthritis, unspecified; Z83.3 Family history of diabetes mellitus; Z99.2 Dependence on renal dialysis; Z98.890 Other specified postprocedural states; Z79.01 Long term (current) use of anticoagulants; Z79.82 Long term (current) use of aspirin; Z79.02 Long term (current) use of antithrombotics/antiplatelets
CPT/HCPCS: 36415; 36430; 36600; 71010; 80048; 80053; 80069; 82805; 82962; 83735; 85014; 85018; 85025; 85610; 85730; 86850; 86900; 86901; 86920; 88305; 88342; 93005; 96372; 96374; 96375; 97162-GP; 99291; A9270-GY; C9113; G0257; J2405; J2550

== ENCOUNTER 2016-12-02 14:59 | Inpatient (IN) | payer OTHER, MEDICARE ==
--- NOTE | ~2016-12-02 | HP ---
History And Physical [address] [place]. [address] NAME: JASON LUIS : 55 STATUS : ADM IN [facility]#: [id number] AGE: 61 ADM/REG DATE : 12/02/16 MR#: [id number] REPORT SERV DATE: 12/02/16 DICTATED BY: DATE: REPORT STATUS : Draft TRANSCRIBED BY: MODL DATE: 12/02/16 DATE OF ADMISSION: 12/02/2016 CHIEF COMPLAINT: Fall, hypoglycemia. HISTORY OF PRESENT ILLNESS: Mr. uLis is a 61-year-old white male with an extensive past medical history including end-stage renal disease; failed kidney-pancreas transplant, on chronic immunosuppression; bilateral ischemic toes; and his most recent diagnosis has been stage JEFF head and neck, tonsillar cancer. He has also had GI bleeding in the last couple of weeks as well. He is brought to the [facility] Emergency Department via EMS. Apparently, the patient had a low blood sugar about 2:30 this morning, was given orange juice, blood sugar lamin, and then around 10:30 in the morning, the went downstairs and found him on the sofa unresponsive with a blackened left eye, apparently, he had fallen. They state that blood sugars started dropping on Saturday and he has had no insulin since that time. On EMS arrival, his blood sugar was 11. When he got to the emergency department, he was quite hypotensive and hypothermic, and he was transferred here for further care after getting his glucose more stable. After discussing with the , apparently, the patient had been on 10 mg of prednisone till approximately nine days ago, then decreased it to 5, and then shortly after that is when blood sugars started dropping. They denied any fevers, chills, cough, congestion, no shortness of breath, chest pain, tightness, pressure. They were at the [facility] in [place] on Saturday and had an echocardiogram, EF was 20%. For his head and neck cancer, he was due to start chemotherapy on Saturday and radiation on Saturday. He states that his feet are actually looking better and that the drainage that was from the feet and has actually decreased. PAST MEDICAL HISTORY: End-stage renal disease; EF 20; failed kidney-pancreas transplant; coronary artery disease; KS; diabetes; hypothyroidism; anemia; hyperlipidemia; bilateral ischemic toes to both feet; peripheral vascular disease; head and neck squamous cell cancer, stage IV; and cholecystectomy. SOCIAL HISTORY: He is . No tobacco, alcohol, or illicit drug use. FAMILY MEDICAL HISTORY: Positive for end-stage renal disease, colon cancer, diabetes. ALLERGIES: NONE. MEDICATIONS: At home, allopurinol, aspirin, atorvastatin, Coreg, Plavix, Neurontin, Lantus, Humalog, levothyroxine, Nitrostat, oxycodone, Protonix, prednisone. REVIEW OF SYSTEMS: 12-point review of systems obtained, negative with the exception of hat in HPI. PHYSICAL EXAMINATION: VITAL SIGNS: Temperature 96.9, blood pressure 95/62, pulse 86, respiratory rate 16, O2 saturation of 100% on 2 L. GENERAL: This is a chronically ill-appearing white male. He is awake, alert, oriented, and History And Physical [address] [address] NAME: JASON LUIS : 55 STATUS : ADM IN [facility]#: [id number] AGE: 61 ADM/REG DATE : 12/02/16 MR#: [id number] REPORT SERV DATE: 12/02/16 DICTATED BY: DATE: REPORT STATUS : Draft TRANSCRIBED BY: MODL DATE: 12/02/16 with significant ecchymosis around the left eye with swelling. HEENT: Oral mucosa is dry. NECK: No neck vein distention. PermCath, right IJ. RESPIRATIONS: Even and unlabored. Breath sounds clear to auscultation. HEART: Rate is regular. ABDOMEN: Soft and nontender. No CVA tenderness. BACK: Within normal limits. EXTREMITIES: Toes to both feet with ischemic changes and chronic in nature. No change since last evaluation. NEURO: Generalized weakness. Mood and affect are pleasant, appropriate. PERTINENT LABS AND X-RAYS: Chest x-ray, negative. Lactate was 4.3. Sodium 141, potassium 5, chloride 102, CO2 30, BUN 23, creatinine 4.8, calcium 8.9, albumin of 2.6. Troponin 0.06. LFTs are unremarkable. CT of the head, negative. WBC 7, hemoglobin and hematocrit 11 and 38, platelets 327,000. IMPRESSION: 1. Hypoglycemia. 2. Fall. 3. Failed kidney-pancreas transplant, on chronic immunosuppression with prednisone. 4. End-stage renal disease. 5. Stage JEFF head and neck cancer. 6. Ischemic cardiomyopathy with EF [facility]. 7. Coronary artery disease. 8. Bilateral ischemic toes. 9. Peripheral vascular disease. PLAN/RECOMMENDATION: Suspect his hypoglycemia may be related to adrenal insufficiency given his recent drop from 10 to 5 mg of prednisone. He has had no insulin in days now. We will start him on Solu-Medrol, D10 drip. Follow blood sugars q.2 hours and discontinue when blood sugars are more stable with the Solu-Medrol. Of course, must evaluate for sepsis as etiology as well. We will go ahead and empirically cover him with vancomycin and Zosyn. Follow up blood cultures that have already been obtained. Dialysis tomorrow per routine. We will consult Dr. Land and make sure he is aware of the patient's hospitalization, and this patient is very anxious to start chemotherapy. Further orders and recommendations pending clinical course. CITLALI/LAYLA SKIP Bolanos / [id number] CC: History And Physical [address] [address] NAME: JASON LUIS : 55 STATUS : ADM IN [facility]#: [id number] AGE: 61 ADM/REG DATE : 12/02/16 MR#: [id number] REPORT SERV DATE: 12/02/16 DICTATED BY: DATE: REPORT STATUS : Draft TRANSCRIBED BY: MODL DATE: 12/02/16 Bert Cortez M.D.
--- NOTE | ~2016-12-02 | CN ---
Consultation Report [facility] [address] [facility] [place]. [address] NAME: JASON LUIS : 55 STATUS : ADM IN [facility]#: [id number] AGE: 61 ADM/REG DATE : 12/02/16 MR#: [id number] REPORT SERV DATE: 12/04/16 DICTATED BY: SID MAYNARD DATE: 12/03/16 REPORT STATUS : Draft TRANSCRIBED BY: MODL DATE: 12/03/16 CONSULTATION NOTE DATE OF CONSULTATION: 12/03/2016 REASON FOR CONSULTATION: Evaluation for bilateral foot wounds. BRIEF HISTORY: The patient is a 61-year-old gentleman with the past medical history significant for coronary artery disease, diabetes, end-stage renal disease, myocardial infarction, cardiogenic shock, and tonsillar cancer who was admitted to the hospital after a hypoglycemic episode. He is being worked up for possible infectious causes as well as other medical-related causes. In this, there is some question as to whether his feet are infected. I was consulted for evaluation and treatment. The patient denies any other complaints. PAST MEDICAL HISTORY: Diabetes; end-stage renal disease; hypothyroidism; hyperlipidemia; and coronary artery disease, status post recent myocardial infarction. PAST SURGICAL HISTORY: Includes pancreas transplants, a kidney transplant, cataract removal, cholecystectomy, right IJ PermCath placement as well as a forearm loop graft and subsequent left IJ PermCath placement. SOCIAL HISTORY: He is . He denies tobacco, alcohol, or drug use. FAMILY HISTORY: Unremarkable. MEDICATIONS: Documented on the chart and were reviewed. ALLERGIES: DOCUMENTED ON THE CHART AND WERE REVIEWED. REVIEW OF SYSTEMS: A complete review of systems was performed and is negative with the exception of the aforementioned findings. PHYSICAL EXAMINATION: VITAL SIGNS: Documented on the chart and were reviewed. GENERAL: The patient is awake, alert, oriented, and in no apparent distress. HEENT/NECK: His head and neck examination is significant for a right neck mass. HEART: His heart has a regular rate and rhythm. LUNGS: His lungs are clear. ABDOMEN: His abdomen is soft, nontender, and nondistended with a nonaneurysmal aorta. EXTREMITIES: He has a normal complement of upper extremity pulses without any significant edema or ischemic ulcerations. He has palpable femoral pulses. He has palpable popliteal pulses, but nonpalpable pulses distally. He has dry gangrene on all of his toes with no Consultation Report [address] [place]. [address] NAME: JASON LUIS : 55 STATUS : ADM IN [facility]#: [id number] AGE: 61 ADM/REG DATE : 12/02/16 MR#: [id number] REPORT SERV DATE: 12/04/16 DICTATED BY: SID MAYNARD DATE: 12/03/16 REPORT STATUS : Draft TRANSCRIBED BY: LAYLA DATE: 12/03/16 moisture, cellulitis, fluctuance, erythema, or drainage. NEUROLOGIC: Grossly nonfocal. MUSCULOSKELETAL: Otherwise, benign. LABORATORY DATA: His laboratory investigations reveal urine chemistry that is consistent with his renal failure. His potassium was actually elevated at 5.8. He has no leukocytosis. He does have anemia. 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 I talked to him about the risks, benefits, and alternatives of amputation. After an extensive discussion, as his pain is controlled with oral medications and his wounds do not have infection, he is agreeable to medical management. If his wounds worsen or if he develops worsening pain, the answer for him is [id number] amputation. He understands the issues with wound healing being on chemotherapeutic agents. He also understands the immunosuppressive effect of chemotherapeutic agents. He is agreeable to this plan. I discussed this with Dr. Acevedo. I will be available as needed. EZIO/LAYLA Sid Maynard M.D. / [id number] CC: Giorgi Vazquez M.D.
--- NOTE | ~2016-12-02 | DS ---
Discharge Summary [address] [place]. [address] NAME: JASON LUIS : 55 STATUS : DIS IN PAT#: [id number] AGE: 61 ADM/REG DATE : 12/02/16 MR#: [id number] REPORT SERV DATE: 12/08/16 DICTATED BY: HUSAM ACEVEDO DATE: 12/07/16 REPORT STATUS : Draft TRANSCRIBED BY: MODL DATE: 12/07/16 ADMISSION DATE: 12/02/2016 DISCHARGE DATE: 12/07/2016 CHIEF COMPLAINT: Hypoglycemia. HISTORY OF PRESENT ILLNESS: Mr. Luis is a 61-year-old white male with significant past medical history of failed kidney pancreas transplant, ESRD, acute [place] (08/2016), chronic systolic CHF (ejection fraction 20%), diabetes, and stage IV tonsillar cancer presented with hypoglycemia. The patient is also noted to have dry gangrene of toes bilaterally in the setting of peripheral vascular disease. The patient has been admitted in the past by the [place] vascular surgeons along with Dr. Maynard of [facility] V[facility] Surgery. HOSPITAL COURSE: The patient was evaluated for hypoglycemia. There was concerns of possible infection with the patient having bilateral dry gangrene and PermCath in place for hemodialysis. Dr. Maynard was consulted for evaluation of his feet bilaterally. He thought they have clinically improved since he was last seen. There was no signs of overt infection or progression of disease. Infectious Disease was consulted at [facility] to ask the recommendations. They did not recommend any additional antibiotics. Dr. Maynard did not think he needed surgical intervention at this time knowing that he was going to get chemotherapy. The patient's blood cultures were 1/2 positive for coag-negative but on repeat were negative. The patient briefly got vancomycin and Zosyn, but his white blood cell count and temperature curve remained unremarkable. As a result, the medications were quickly discontinued. The patient was on D10 drip for approximately 24-36 hours. It was discontinued. Sugars now read in 200 consistently over the last 72 hours. The patient has a history of stage IV tonsillar cancer. He has had a complicated hospital course with multiple hospitalizations preventing initiation of chemotherapy and radiation therapy. Dr. Mateo Land was consulted for further evaluation and management. Cisplatin 40 mg/m2 was initiated with first treatment on 12/06/2016. He also was initiated on radiation therapy on 12/06/2016. The patient will be receiving a weekly course of the cisplatin under the direction of Dr. Land. He is to receive a second treatment of radiation therapy with management per Radiation Oncology and Dr. Land. The patient is completing hemodialysis without any complications. DISPOSITION: To home. DISCHARGE CONDITION: Stable. MEDICATIONS: On discharge include 1. Allopurinol 100 mg daily. 2. Aspirin 81 mg daily. 3. Lipitor 40 mg daily. 4. Carvedilol 6.25 mg p.o. b.i.d. 5. Plavix 75 mg daily. 6. Gabapentin 300 mg p.o. q.a.m. Discharge Summary [address] [address] NAME: JASON LUIS : 55 STATUS : DIS IN PAT#: [id number] AGE: 61 ADM/REG DATE : 12/02/16 MR#: [id number] REPORT SERV DATE: 12/08/16 DICTATED BY: HUSAM ACEVEDO. DATE: 12/07/16 REPORT STATUS : Draft TRANSCRIBED BY: MODL DATE: 12/07/16 7. Lantus 26 units every morning. 8. Aspart sliding scale. 9. Levothyroxine 125 mcg. 10.Prednisone 10 mg daily. 11.Oxycodone. Followup with Dr. Land in approximately 1 week per this physician. Discussed case with Nelly Antonio NP. The patient to be seen on hemodialysis by nurse or nurse practitioner on every hemodialysis. If the patient develops fever, hemodynamic instability, the patient is to be sent to the emergency room for further evaluation and management, possible hospitalization, and excision. DELPHINEG/SAMANTHAL Husam Acevedo M.D. / [id number] CC: Giorgi Vazquez M.D.
[~2016-12-02 14:59] MED LIST changes: +PROTONIX PO
[2016-12-02] MEDS ORDERED: ASAB PO (16:55)
[2016-12-02] MEDS ORDERED: Z100 PO (16:55)
[2016-12-02] MEDS ORDERED: LIPITOR40 PO (16:55)
[2016-12-02] MEDS ORDERED: SYN125 PO (16:56)
[2016-12-02] MEDS ORDERED: LANTUSCART SC (16:56)
[2016-12-02] MEDS ORDERED: PLAVIX PO (16:56)
[2016-12-02] MEDS ORDERED: NEUR300 PO (16:56)
[2016-12-02] MEDS ORDERED: NOVOPEN SC (16:56)
[2016-12-02] MEDS ORDERED: COREG6 PO (16:56)
[2016-12-02] MEDS ORDERED: NITROSTAT0.4 MG SL (16:57)
[2016-12-02] MEDS ORDERED: P5 PO (16:57)
[2016-12-02] MEDS ORDERED: PCET PO (16:57)
[2016-12-02] MEDS ORDERED: PRIN5 PO (16:58)
[2016-12-03 08:39] LABS: BASOPHILS 0 %; EOSINOPHILS 0 %; HEMATOCRIT 33.5 % (40.0-51.0); HEMOGLOBIN 10.5 g/dL (13.6-17.8); IMMATURE GRANULOCYTES 0.3 %; IMMATURE GRANULOCYTES ABSOLUTE 0.02 10/3/uL (0.0-0.11); LYMPHOCYTES 5.9 %; LYMPHOCYTES ABSOLUTE 0.37 10/3/uL (0.67-4.30); MEAN CORPUS HGB CONC 31.3 g/dL (32.0-36.0); MEAN CORPUSCULAR HEMOGLOB 27.7 pg (26.0-34.0); MEAN CORPUSCULAR VOLUME 88.4 fL (80-100); MEAN PLATELET VOLUME 8.9 fL (9.2-13.0); MONOCYTES 1.6 %; NEUTROPHILS 92.2 %; PLATELET COUNT 210 10/3/uL (150-400); RBC DISTRIBUTION WIDTH 19.7 % (12.0-16.0); RED CELL COUNT 3.79 10/6/uL (4.7-6.1); WHITE BLOOD CELLS 6.3 10/3/uL (4.5-10.5)
[2016-12-03 08:40] LABS: MANUAL DIFF NO %
[2016-12-03 08:54] LABS: ALBUMIN 2.1 G/DL (3.5-5.0); BUN (BLOOD UREA NITROGEN) 31 MG/DL (6-23); CALCIUM, SERUM 8.1 MG/DL (8.5-10.4); CHLORIDE, SERUM 101 MMOL/L (96-112); CO2 (CARBON DIOXIDE) 24 MMOL/L (24-34); CREATININE 5.23 MG/DL (0.70-1.30); GFR AFRICAN AMERICAN 13 ML/MIN (>=60); GFR NON AFRICAN AMERICAN 11 ML/MIN (>=60); GLUCOSE, SERUM 256 MG/DL (60-99); POTASSIUM, SERUM 5.8 MMOL/L (3.5-5.3); SODIUM, SERUM 136 MMOL/L (135-148)
[2016-12-03 08:55] LABS: PHOSPHORUS, SERUM 5.3 MG/DL (2.5-4.5)
[2016-12-03 09:19] LABS: PROCALCITONIN 20.23 ng/mL (<0.5)
[2016-12-04 06:40] LABS: BASOPHILS 0 %; EOSINOPHILS 0 %; HEMATOCRIT 34.3 % (40.0-51.0); HEMOGLOBIN 10.7 g/dL (13.6-17.8); IMMATURE GRANULOCYTES 0.1 %; IMMATURE GRANULOCYTES ABSOLUTE 0.01 10/3/uL (0.0-0.11); LYMPHOCYTES 4.9 %; LYMPHOCYTES ABSOLUTE 0.38 10/3/uL (0.67-4.30); MEAN CORPUS HGB CONC 31.2 g/dL (32.0-36.0); MEAN CORPUSCULAR HEMOGLOB 27.8 pg (26.0-34.0); MEAN CORPUSCULAR VOLUME 89.1 fL (80-100); MONOCYTES 9.1 %; MONOCYTES ABSOLUTE 0.71 10/3/uL (0.21-1.20); NEUTROPHILS 85.9 %; NEUTROPHILS ABSOLUTE 6.68 10/3/uL (2.02-8.40); PLATELET COUNT 212 10/3/uL (150-400); RBC DISTRIBUTION WIDTH 19.2 % (12.0-16.0); RED CELL COUNT 3.85 10/6/uL (4.7-6.1); WHITE BLOOD CELLS 7.8 10/3/uL (4.5-10.5)
[2016-12-04 06:43] LABS: MANUAL DIFF NO %
[2016-12-04 06:54] LABS: ALBUMIN 2.4 G/DL (3.5-5.0); BUN (BLOOD UREA NITROGEN) 32 MG/DL (6-23); CALCIUM, SERUM 8.3 MG/DL (8.5-10.4); CHLORIDE, SERUM 100 MMOL/L (96-112); CO2 (CARBON DIOXIDE) 26 MMOL/L (24-34); PHOSPHORUS, SERUM 5.4 MG/DL (2.5-4.5); POTASSIUM, SERUM 5.2 MMOL/L (3.5-5.3); SODIUM, SERUM 136 MMOL/L (135-148)
[2016-12-04 06:56] LABS: CREATININE 4.33 MG/DL (0.70-1.30); GFR AFRICAN AMERICAN 16 ML/MIN (>=60); GFR NON AFRICAN AMERICAN 14 ML/MIN (>=60); GLUCOSE, SERUM 331 MG/DL (60-99)
[2016-12-04 08:06] LABS: PROCALCITONIN 26.22 ng/mL (<0.5)
[2016-12-05 09:13] LABS: BASOPHILS 0.2 %; BASOPHILS ABSOLUTE 0.01 10/3/uL (0.0-0.16); EOSINOPHILS ABSOLUTE 0.06 10/3/uL (0.0-0.53); HEMATOCRIT 32.1 % (40.0-51.0); HEMOGLOBIN 10.1 g/dL (13.6-17.8); IMMATURE GRANULOCYTES 0.3 %; IMMATURE GRANULOCYTES ABSOLUTE 0.02 10/3/uL (0.0-0.11); LYMPHOCYTES 9.2 %; LYMPHOCYTES ABSOLUTE 0.58 10/3/uL (0.67-4.30); MEAN CORPUS HGB CONC 31.5 g/dL (32.0-36.0); MEAN CORPUSCULAR HEMOGLOB 27.8 pg (26.0-34.0); MEAN CORPUSCULAR VOLUME 88.4 fL (80-100); MEAN PLATELET VOLUME 9.5 fL (9.2-13.0); MONOCYTES 8.9 %; MONOCYTES ABSOLUTE 0.56 10/3/uL (0.21-1.20); NEUTROPHILS 80.4 %; NEUTROPHILS ABSOLUTE 5.06 10/3/uL (2.02-8.40); PLATELET COUNT 226 10/3/uL (150-400); RBC DISTRIBUTION WIDTH 19.4 % (12.0-16.0); RED CELL COUNT 3.63 10/6/uL (4.7-6.1); WHITE BLOOD CELLS 6.3 10/3/uL (4.5-10.5)
[2016-12-05 09:16] LABS: MANUAL DIFF NO %
[2016-12-05 09:28] LABS: ALBUMIN 2.1 G/DL (3.5-5.0); CALCIUM, SERUM 7.7 MG/DL (8.5-10.4); CHLORIDE, SERUM 103 MMOL/L (96-112); CO2 (CARBON DIOXIDE) 25 MMOL/L (24-34); CREATININE 4.76 MG/DL (0.70-1.30); GFR AFRICAN AMERICAN 14 ML/MIN (>=60); GFR NON AFRICAN AMERICAN 12 ML/MIN (>=60); PHOSPHORUS, SERUM 4.7 MG/DL (2.5-4.5); POTASSIUM, SERUM 4.9 MMOL/L (3.5-5.3); SODIUM, SERUM 138 MMOL/L (135-148); VANCOMYCIN TROUGH 17.9 MCG/ML (10.0-20.0)
[2016-12-05 09:30] LABS: BUN (BLOOD UREA NITROGEN) 45 MG/DL (6-23); GLUCOSE, SERUM 127 MG/DL (60-99)
[2016-12-05 10:07] LABS: PROCALCITONIN 24.25 ng/mL (<0.5)
[2016-12-06 05:24] LABS: HEMATOCRIT 33.1 % (40.0-51.0); HEMOGLOBIN 10.3 g/dL (13.6-17.8); MEAN CORPUS HGB CONC 31.1 g/dL (32.0-36.0); MEAN CORPUSCULAR HEMOGLOB 27.8 pg (26.0-34.0); MEAN CORPUSCULAR VOLUME 89.5 fL (80-100); MEAN PLATELET VOLUME 9.5 fL (9.2-13.0); PLATELET COUNT 226 10/3/uL (150-400); RBC DISTRIBUTION WIDTH 19.3 % (12.0-16.0); WHITE BLOOD CELLS 6.6 10/3/uL (4.5-10.5)
[2016-12-06 05:33] LABS: MANUAL DIFF YES %
[2016-12-06 05:41] LABS: ALBUMIN 2.2 G/DL (3.5-5.0); CALCIUM, SERUM 7.8 MG/DL (8.5-10.4); CHLORIDE, SERUM 104 MMOL/L (96-112); CO2 (CARBON DIOXIDE) 24 MMOL/L (24-34); POTASSIUM, SERUM 4.7 MMOL/L (3.5-5.3); SODIUM, SERUM 140 MMOL/L (135-148)
[2016-12-06 05:55] LABS: BUN (BLOOD UREA NITROGEN) 34 MG/DL (6-23); CREATININE 3.73 MG/DL (0.70-1.30); GFR AFRICAN AMERICAN 19 ML/MIN (>=60); GFR NON AFRICAN AMERICAN 16 ML/MIN (>=60); GLUCOSE, SERUM 330 MG/DL (60-99); PHOSPHORUS, SERUM 3.3 MG/DL (2.5-4.5)
[2016-12-06 05:59] LABS: ANISOCYTOSIS 1+ (5-10/OIF) (0-5/OIF); LYMPHOCYTES 6 %; MONOCYTES 4 %; MONOCYTES ABSOLUTE (CALC) 0.26 10/3/uL (0.21-1.20); NEUTROPHILS ABSOLUTE (CALC) 5.94 10/3/uL (2.02-8.40); PLATELET ESTIMATE ADQ (ADEQUATE); RBC MORPHOLOGY ABN (NORMAL); SEGMENTED NEUTROPHIL (0) 90 %; TOTAL NUCLEATED CELLS 100
[2016-12-07 09:19] LABS: BASOPHILS 0 %; EOSINOPHILS 0 %; HEMATOCRIT 34.1 % (40.0-51.0); HEMOGLOBIN 10.9 g/dL (13.6-17.8); IMMATURE GRANULOCYTES 0.4 %; IMMATURE GRANULOCYTES ABSOLUTE 0.03 10/3/uL (0.0-0.11); LYMPHOCYTES 6.9 %; LYMPHOCYTES ABSOLUTE 0.57 10/3/uL (0.67-4.30); MEAN CORPUSCULAR HEMOGLOB 28.1 pg (26.0-34.0); MEAN CORPUSCULAR VOLUME 87.9 fL (80-100); MEAN PLATELET VOLUME 9.3 fL (9.2-13.0); MONOCYTES 4.8 %; NEUTROPHILS 87.9 %; NEUTROPHILS ABSOLUTE 7.26 10/3/uL (2.02-8.40); PLATELET COUNT 242 10/3/uL (150-400); RBC DISTRIBUTION WIDTH 19.2 % (12.0-16.0); RED CELL COUNT 3.88 10/6/uL (4.7-6.1); WHITE BLOOD CELLS 8.3 10/3/uL (4.5-10.5)
[2016-12-07 09:21] LABS: MANUAL DIFF NO %
[2016-12-07 09:33] LABS: ALBUMIN 2.4 G/DL (3.5-5.0); CALCIUM, SERUM 7.9 MG/DL (8.5-10.4); CHLORIDE, SERUM 100 MMOL/L (96-112); CO2 (CARBON DIOXIDE) 23 MMOL/L (24-34); POTASSIUM, SERUM 4.9 MMOL/L (3.5-5.3); SODIUM, SERUM 134 MMOL/L (135-148)
[2016-12-07 09:34] LABS: BUN (BLOOD UREA NITROGEN) 50 MG/DL (6-23); CREATININE 4.65 MG/DL (0.70-1.30); GFR AFRICAN AMERICAN 15 ML/MIN (>=60); GFR NON AFRICAN AMERICAN 13 ML/MIN (>=60); GLUCOSE, SERUM 212 MG/DL (60-99); PHOSPHORUS, SERUM 4.7 MG/DL (2.5-4.5)
[2017-03-23] MEDS ORDERED: Z100 PO (18:57)
[2017-03-23] MEDS ORDERED: P10 PO (18:57)
[2017-03-23] MEDS ORDERED: PLAVIX PO (18:57)
[2017-03-23] MEDS ORDERED: HALF81 PO (18:57)
[2017-03-23] MEDS ORDERED: NEUR300 PO (18:57)
[2017-03-23] MEDS ORDERED: LIPITOR40 PO (18:57)
[2017-03-23] MEDS ORDERED: SYN125 PO (18:57)
[2017-03-23] MEDS ORDERED: NITROSTAT0.4 MG SL (18:58)
[2017-03-23] MEDS ORDERED: COREG6 PO (18:58)
[2017-03-23] MEDS ORDERED: LANTUS SC (18:58)
[2017-03-23] MEDS ORDERED: HUMALOG SC (18:58)
[2017-03-23] MEDS ORDERED: NORCO1 TAB PO (18:59)
[2017-03-23] MEDS ORDERED: VANCO1P IV (18:59)
[2017-03-23] MEDS ORDERED: FORTAZ IV (19:00)
[2017-04-05] MEDS ORDERED: FLUCON1 PO (13:48)
[2017-04-06] MEDS ORDERED: NYSTATPOW TOP (16:13)
[2017-04-06] MEDS ORDERED: VANCO500 IV (16:14)
[2017-04-29] MEDS ORDERED: ATV.5 PO (22:08)
[2017-05-02] MEDS ORDERED: PROTONIX PO (16:43)
[2017-05-02] MEDS ORDERED: LEVAQUIN5T PO (16:44)
[2017-05-02] MEDS ORDERED: CARASPUDL PO (16:48)
== END 2016-12-07 16:33 | disposition home or self-care (01) | DRG 638 ==
LOC: 2SO 14:59
PROVIDERS: Internal Medicine Nephrology; Registered Nurse
PROC: 5A1D60Z (ICD-10-PCS; principal; 2016-12-03)
PROC: 02HV33Z Insertion of Infusion Device into Superior Vena Cava, Percutaneous Approach (ICD-10-PCS; 2016-12-06)
PROC: 3E0 Administration, Physiological Systems and Anatomical Regions, Introduction (ICD-10-PCS; 2016-12-07)
DX: E10.649 Type 1 diabetes mellitus with hypoglycemia without coma (principal); T86.12 Kidney transplant failure; I13.2 Hypertensive heart and chronic kidney disease with heart failure and with stage 5 chronic kidney disease, or end stage renal disease; N18.6 End stage renal disease; E10.52 Type 1 diabetes mellitus with diabetic peripheral angiopathy with gangrene; D64.9 Anemia, unspecified; C09.9 Malignant neoplasm of tonsil, unspecified; T86.891 Other transplanted tissue failure; E27.40 Unspecified adrenocortical insufficiency; I50.22 Chronic systolic (congestive) heart failure; I13.11 Hypertensive heart and chronic kidney disease without heart failure, with stage 5 chronic kidney disease, or end stage renal disease; S00.10XA Contusion of unspecified eyelid and periocular area, initial encounter; I25.10 Atherosclerotic heart disease of native coronary artery without angina pectoris; E03.9 Hypothyroidism, unspecified; E78.5 Hyperlipidemia, unspecified; Z99.2 Dependence on renal dialysis; Z85.89 Personal history of malignant neoplasm of other organs and systems; I25.2 Old myocardial infarction; Z98.890 Other specified postprocedural states; Z88.3 Allergy status to other anti-infective agents; Z85.038 Personal history of other malignant neoplasm of large intestine; Z84.1 Family history of disorders of kidney and ureter; I25.5 Ischemic cardiomyopathy; W19.XXXA Unspecified fall, initial encounter; R68.0 Hypothermia, not associated with low environmental temperature; I73.9 Peripheral vascular disease, unspecified; Z92.21 Personal history of antineoplastic chemotherapy; Z92.3 Personal history of irradiation; S01.112A Laceration without foreign body of left eyelid and periocular area, initial encounter; E10.22 Type 1 diabetes mellitus with diabetic chronic kidney disease; E10.40 Type 1 diabetes mellitus with diabetic neuropathy, unspecified; Z79.4 Long term (current) use of insulin; Z79.52 Long term (current) use of systemic steroids; Z79.899 Other long term (current) drug therapy
CPT/HCPCS: 36569; 70450; 71010; 77300; 77301; 77338; 77386; 80053; 80069; 80202; 82962; 83605; 83735; 84145; 84484; 85025; 85610; 85730; 87040; 87070; 87077; 87186; 87205; 96365; 96367; 96375; 97116-GP; 97161-GP; 97530-GP; 99291; A9270-GY; C1751; G0257; G8978-CJ-GP; G8979-CI-GP; J2405; J2543; J2920; J3370; J9060; P9047

== ENCOUNTER 2016-12-14 01:09 | Emergency (ER) | payer OTHER ==
[~2016-12-14 01:09] MED LIST changes: +NOVOPEN SC; +PRIN5 PO
[2017-03-23] MEDS ORDERED: SYN125 PO (18:57)
[2017-03-23] MEDS ORDERED: Z100 PO (18:57)
[2017-03-23] MEDS ORDERED: P10 PO (18:57)
[2017-03-23] MEDS ORDERED: LIPITOR40 PO (18:57)
[2017-03-23] MEDS ORDERED: NEUR300 PO (18:57)
[2017-03-23] MEDS ORDERED: HALF81 PO (18:57)
[2017-03-23] MEDS ORDERED: PLAVIX PO (18:57)
[2017-03-23] MEDS ORDERED: LANTUS SC (18:58)
[2017-03-23] MEDS ORDERED: COREG6 PO (18:58)
[2017-03-23] MEDS ORDERED: NITROSTAT0.4 MG SL (18:58)
[2017-03-23] MEDS ORDERED: HUMALOG SC (18:58)
[2017-03-23] MEDS ORDERED: VANCO1P IV (18:59)
[2017-03-23] MEDS ORDERED: NORCO1 TAB PO (18:59)
[2017-03-23] MEDS ORDERED: FORTAZ IV (19:00)
[2017-04-05] MEDS ORDERED: FLUCON1 PO (13:48)
[2017-04-06] MEDS ORDERED: NYSTATPOW TOP (16:13)
[2017-04-06] MEDS ORDERED: VANCO500 IV (16:14)
[2017-04-29] MEDS ORDERED: ATV.5 PO (22:08)
[2017-05-02] MEDS ORDERED: PROTONIX PO (16:43)
[2017-05-02] MEDS ORDERED: LEVAQUIN5T PO (16:44)
[2017-05-02] MEDS ORDERED: CARASPUDL PO (16:48)
== END 2016-12-14 02:12 | disposition home or self-care (01) ==
LOC: ER 01:09
DX: Z45.2 Encounter for adjustment and management of vascular access device (principal); I10 Essential (primary) hypertension; I25.2 Old myocardial infarction; E11.9 Type 2 diabetes mellitus without complications; Z99.2 Dependence on renal dialysis; Z85.818 Personal history of malignant neoplasm of other sites of lip, oral cavity, and pharynx; Z79.82 Long term (current) use of aspirin; Z79.899 Other long term (current) drug therapy; Z79.4 Long term (current) use of insulin
CPT/HCPCS: 71010; 99283

== ENCOUNTER 2017-01-27 23:21 | Inpatient (IN) | payer OTHER ==
--- NOTE | ~2017-01-27 | HP ---
History And Physical [facility] [place]. [address] NAME: JASON LUIS : 55 STATUS : DIS IN PAT#: [id number] AGE: 62 ADM/REG DATE : 01/28/17 MR#: [id number] REPORT SERV DATE: 02/14/17 DICTATED BY: HUSAM ACEVEDO DATE: 01/28/17 REPORT STATUS : Draft TRANSCRIBED BY: MODL DATE: 01/28/17 DATE OF CONSULTATION: 01/28/2017 CHIEF COMPLAINT: Volume overload and shortness of breath. HISTORY OF PRESENT ILLNESS: The patient is a 61-year-old white male with significant past medical history of ESRD, chronic systolic CHF (ejection fraction is 20%), ASCVD (stent at 08/11/2016), PVD status post right BKA with dry gangrene, diabetes, and failed kidney pancreas transplant, presented with increasing lower extremity edema and shortness of breath. The patient states that he has gone from approximately 190 pounds to 216 pounds over the last week. However, reviewing his dialysis sheet, it appears from at least 01/11/2017 his weight has gone from 84.9 kg to 92.1 kg with additional weight gain after that time period. The patient has noticeable anasarca. He was started on Levaquin due to concerns for possible respiratory infection. Chest x-ray does not show any infiltrates or effusions. White blood cell count is within normal limits. The patient did have an acute myocardial infarction in August 2016. He has had a cardiac stent. I do not at this time know his coronary anatomy. He is in normal sinus rhythm. Systolic blood pressure is greater than 100. He denies any chest pain, pressure, or palpitations. He denies any orthopnea or PND. He has only noticed increasing diffuse edema with increasing shortness of breath with exertion. 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 He was being followed by Dr. Darrius Merritt. He has not completed his chemotherapy or radiation therapy due to multiple acute hospitalizations. Last PET scan completed in November 2016 did not show any evidence of metastasis. PAST MEDICAL HISTORY/PAST SURGICAL HISTORY: 1. End-stage renal disease, [facility] [place] on Saturday, Saturday, and Saturday, but change to Saturday, , and Saturday in the future. 2. 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 Followed by Dr. Darrius Merritt, has not completed his radiation or chemotherapy. 3. Systolic congestive heart failure with ejection fraction of 20% with a known acute myocardial infarction in August 2016, and a stent in 08/11/2016. 4. Kidney-pancreas transplant on chronic immunosuppression. Remains on prednisone. 5. Peripheral vascular disease status post right BKA in December 2016. Known dry gangrene of his left foot. Followed by V[facility] Surgery at [place], seen by Dr. Maynard in the past. Known occluded right popliteal and anterior tibial artery. 6. Insulin-dependent diabetes. 7. Hypothyroidism. 8. Cholecystectomy. SOCIAL HISTORY: No tobacco, alcohol, or drugs. . One son. Malgorzata. FAMILY MEDICAL HISTORY: No known kidney disease. ALLERGIES: NO KNOWN DRUG ALLERGIES. History And Physical [address] [address] NAME: JASON LUIS : 55 STATUS : DIS IN PAT#: [id number] AGE: 62 ADM/REG DATE : 01/28/17 MR#: [id number] REPORT SERV DATE: 02/14/17 DICTATED BY: HUSAM ACEVEDO DATE: 01/28/17 REPORT STATUS : Draft TRANSCRIBED BY: LAYLA DATE: 01/28/17 MEDICATIONS: At home: 1. Allopurinol 100 mg daily. 2. Aspirin 81 mg daily. 3. Lipitor 80 mg daily. 4. Tessalon Perles 200 mg three times a day p.r.n. for cough. 5. Carvedilol 6.25 mg p.o. b.i.d. 6. Plavix 75 mg daily. 7. Flonase nasal spray. 8. Gabapentin 300 mg daily. 9. Lantus 27 units q.a.m. and 10 units q.p.m. 10.Insulin sliding scale. 11.Lispro. 12.Fosrenol 1000 mg p.o. t.i.d. chew with meals. 13.Levaquin 750 mg p.o. q.48 hours. 14.Synthroid 150 mcg daily. 15.Lisinopril 5 mg daily. 16.Zofran 8 mg. 17.Prednisone 10 mg daily. 18.Compazine 10 mg p.r.n. for nausea and vomiting. REVIEW OF SYSTEMS: A complete review of systems negative, otherwise as stated in the HPI. PHYSICAL EXAMINATION: VITAL SIGNS: Temperature is 97.9, systolic blood pressures in the 100 to one teens. Diastolic blood pressure is in the 60s. O2 sats 96% on 3 L nasal cannula oxygen. GENERAL: Chronically ill, but in no apparent distress. NEUROLOGIC: Alert and oriented x3. Gross motor is intact. SKIN: He has dry gangrenous changes on his left lower anterior surface of his wolfe on his left lower extremity and his feet. HEENT: Normocephalic. Moist mucous membranes. NECK: He has palpable mass as known on his lateral surface of his neck. No tenderness or erythema. CARDIOVASCULAR: Regular rate and rhythm. No gallops, rubs, or murmurs. RESPIRATORY: Decreased breath sounds bilaterally. No increased work of breathing. ABDOMEN: Soft, nontender. Positive bowel sounds. : Normal anatomy. PSYCH: Appropriate mood and affect. LABORATORY DATA: Sodium is 132, potassium 5.4, chloride 97, CO2 of 27, BUN is 46, creatinine 4.16, glucose is 282, calcium is 8.3, magnesium is 2.0, and phosphorus of 4.7. White blood cell count is 5.9, hemoglobin 9.6, and platelets is 185. Blood cultures are pending. Chest x-ray shows some pulmonary edema. ASSESSMENT: History And Physical [address] [address] NAME: JASON LUIS : 55 STATUS : DIS IN PAT#: [id number] AGE: 62 ADM/REG DATE : 01/28/17 MR#: [id number] REPORT SERV DATE: 02/14/17 DICTATED BY: HUSAM ACEVEDO DATE: 01/28/17 REPORT STATUS : Draft TRANSCRIBED BY: MODL DATE: 01/28/17 1. Dyspnea in the setting of volume overload. 2. Volume overload with past medical history of end-stage renal disease, and congestive heart failure. 3. Chronic systolic congestive heart failure with ejection fraction of 20%. 4. Atherosclerotic cardiovascular disease with stent x1 in 08/11/2016 with known history of acute myocardial infarction. 5. Peripheral vascular disease with right below-knee amputation with known dry gangrene in the lower extremities. 6. History of questionable upper respiratory infection, on Levaquin from 01/21/2017 to present. 7. Diabetes with hyperglycemia. 8. Long-term insulin. 9. Anemia with history of end-stage renal disease, duodenal ulcer, and gastritis. 10.Kidney-pancreas transplant, failed. 11.Squamous cell carcinoma of the tonsillar cancer, stage JEFF. PET scan in November 2016 is negative for metastasis. 12.End-stage renal disease. PLAN: 1. Daily hemodialysis. 2. Echocardiogram. 3. Bilateral lower extremity ultrasound. 4. Home with p.r.n. medications. 5. We will discuss his medical oncology issues with Dr. Merritt. DELPHINEG/MODL Husam Acevedo M.D. / [id number] CC: Yamil Slater M.D.
--- NOTE | ~2017-01-27 | DS ---
Discharge Summary [facility] [address] [place]. [address] NAME: JASON LUIS : 55 STATUS : DIS IN PAT#: [id number] AGE: 62 ADM/REG DATE : 01/28/17 MR#: [id number] REPORT SERV DATE: 02/20/17 DICTATED BY: HUSAM ACEVEDO DATE: 02/19/17 REPORT STATUS : Draft TRANSCRIBED BY: LAYLA DATE: 02/19/17 Data Collection from hospitalization DISCHARGE DIAGNOSES: 1. End-stage renal disease. 2. Volume overload. 3. Systolic congestive heart failure. 4. Atherosclerotic cardiovascular disease. 5. Peripheral vascular disease. 6. History of failed transplant. 7. Insulin-dependent diabetes. 8. History of stage IV tonsillar cancer. 9. Hypothyroidism. CONSULTATIONS: 1. Sid Maynard M.D. 2. Bert Hines M.D. 3. Mateo Land M.D. PROCEDURES PERFORMED: Venous Doppler ultrasound of the bilateral lower extremities on 01/29/2017. MEDICATIONS: Zyloprim 100 mg daily; aspirin 81 mg daily; Lipitor 80 mg at bedtime; Dulcolax 10 mg daily; Coreg 6.25 mg on Mondays, Wednesdays, and Fridays as instructed; Coreg 6.25 mg on Saturday, Saturday, , and Saturday; Plavix 75 mg daily; Colace 100 mg twice a day; Flonase two sprays in each nostril daily; Neurontin 300 mg at bedtime; Lantus 27 units subcutaneously at 7:00 a.m. and 10 units subcutaneously at 8:00 p.m.; Fosrenol 1000 mg with meals; Synthroid 150 mcg before breakfast; Prinivil 5 mg on Saturday, Saturday, , and Saturday; Deltasone 10 mg daily; Levemir 27 units subcutaneously daily and 10 units subcutaneously at bedtime; Humalog injection insulin before meals and at bedtime; Zofran 8 mg sublingually every eight hours as needed; Roxicodone 5 mg every four hours as needed and as instructed; Compazine 10 mg every four hours as needed. CONDITION AT DISCHARGE: Stable. DISPOSITION: The patient was discharged to [facility] on a renal-diabetic diet with activities as instructed. He would follow up at the [facility] on 02/20/2017. HOSPITAL COURSE: This is a 61-year-old man who has a history of end-stage renal disease and chronic systolic congestive heart failure. His ejection fraction is 20%. He has ASCVD and had a stent placed on 08/11/2016. He has peripheral vascular disease and is status post right below-knee amputation with dry gangrene, diabetes, and failed kidney-pancreas transplant. He presented with increasing lower extremity edema and shortness of breath. He said he had gone from approximately 190 pounds to 216 pounds over the past week. In reviewing his dialysis sheet, it appears that at least on 01/11/2017, his weight had gone from 84.9 kg to 92.1 kg with additional weight gain after that period of time. He has noticeable anasarca. He was started on Levaquin due to concerns for possible respiratory infection. Chest x-ray did not show any infiltrates or effusions. White blood cell count Discharge Summary [address] [address] NAME: JASON LUIS : 55 STATUS : DIS IN PAT#: [id number] AGE: 62 ADM/REG DATE : 01/28/17 MR#: [id number] REPORT SERV DATE: 02/20/17 DICTATED BY: HUSAM ACEVEDO DATE: 02/19/17 REPORT STATUS : Draft TRANSCRIBED BY: LAYLA DATE: 02/19/17 was within normal limits. The patient did have an acute myocardial infarction in August of 2016. He does have a cardiac stent. He was in a normal sinus rhythm. Systolic blood pressure was greater than 100. He denied chest pain, pressure, or palpitations; orthopnea or PND. He had only noticed increasing diffuse edema with increasing shortness of breath with exertion. 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 He had been followed by Dr. Mateo Land. He had not completed his chemotherapy or radiation therapy due to multiple acute hospitalizations. His last PET scan in November of 2016 did not show any evidence of metastasis. He was admitted to the hospital at this time for further evaluation and treatment. Upon admission, blood cultures were pending. Chest x-ray did show some pulmonary edema. He was felt to have dyspnea in the setting of volume overload. Daily hemodialysis therapy would be performed. An echocardiogram was requested as well as bilateral lower extremity ultrasound. He was seen in consultation by Dr. Sid Maynard for evaluation for gangrenous changes of the left foot. The patient had developed atherosclerosis of his lower extremities with wounds. He had undergone bilateral lower extremity arteriograms with attempted intervention. These were not durable. He presented to the hospital once again with volume overload and he had been asked to see the patient regarding his left foot wound. [facility] Since he had last been seen by Dr. Maynard, he denied any complaints other than his volume overload at this time. The abigail were taken out on his right leg, both of his legs were wrapped to reduce edema. Once the edema had reduced and he was medically optimized, he felt that he could have a discussion regarding the left [id number] amputation. The patient said he wanted to think about what he wanted to do. The following day, he was seen by Dr. Bert Hines. The patient was comfortable. 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 His radiation treatment had been stopped due to his right below-knee amputation. He was going to discuss with Dr. Land the plans to restart radiation therapy once the patient was able with or without chemotherapy. He had no new complaints. Hemodialysis therapy was performed. Diuresis continued. An echocardiogram was performed. He was also evaluated by Occupational Therapy. The patient was seen by Dr. Mateo Land. His neck nodes had decreased in size on the right. We were hopeful that he could resume radiation therapy after surgery. It was felt that he would need to improve enough to avoid another therapy break. Cisplatin was going to be added back to his therapy after two weeks of recovery. On 01/30/2017, he was alert and cooperative. He had no focal deficits. He had good pain control. He did have some edema. Hemodialysis therapy continued. He still had anasarca. His toes were stable. He was improving, but felt too edematous for below-knee amputation. Stump aviation survival technician was going to be placed on the right. We discussed outpatient amputation, but his [facility] coverage was questionable as an inpatient and outpatient. He wanted to avoid using Medicare coverage. He was going to discuss treatment further with his . The next day, discharge planning was performed. His abdomen was soft and nontender. He had good pain control. Hemodialysis therapy continued. His leg looked stable. We again discussed below- knee amputation with the patient and he elected to wait. He said he would probably go to the [facility] for [id number] amputation and for a stump aviation survival technician. On 02/01/2017, he had good pain control. He had no focal deficits. Discharge instructions were given. Due to his improved and stable condition, he was discharged to [facility] with the above- stated instructions. Discharge Summary [address] [address] NAME: JASON LUIS : 55 STATUS : DIS IN PAT#: [id number] AGE: 62 ADM/REG DATE : 01/28/17 MR#: [id number] REPORT SERV DATE: 02/20/17 DICTATED BY: HUSAM ACEVEDO DATE: 02/19/17 REPORT STATUS : Draft TRANSCRIBED BY: LAYLA DATE: 02/19/17 Information collected by: So Burns I submit the above information as my discharge summary. TG/LAYLA Husam Acevedo M.D. / [id number] CC: Giorgi Martin M.D. [facility]
--- NOTE | ~2017-01-27 | CN ---
Consultation Report [facility] [address] [place]. [address] NAME: JASON LUIS : 55 STATUS : ADM IN [facility]#: [id number] AGE: 61 ADM/REG DATE : 01/28/17 MR#: [id number] REPORT SERV DATE: 01/29/17 DICTATED BY: SID MAYNARD DATE: 01/28/17 REPORT STATUS : Draft TRANSCRIBED BY: MODL DATE: 01/28/17 CONSULTATION REPORT DATE OF CONSULTATION: 01/28/2017 REASON FOR CONSULTATION: Evaluation for gangrenous changes, left foot. 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 He has been on dialysis and had a failed forearm loop graft. He has been dialyzed via a PermCath. In the interval, he has also developed atherosclerosis of his lower extremities with wounds. He underwent bilateral lower extremity arteriograms with attempted intervention. These were not durable. He comes into the hospital once again with volume overload and I was asked to see him about his left foot wounds. He [facility] him. He denies any complaints other than his volume overload. 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 PAST SURGICAL HISTORY: Pancreas transplants, kidney transplant, cataract surgery, cholecystectomy, right IJ PermCath placement, forearm loop graft, left IJ PermCath placement, bilateral lower extremity interventions, and right gjhot-ffz-idbr amputation. SOCIAL HISTORY: He is . He denies tobacco, alcohol, or drug use. FAMILY HISTORY: Unremarkable. MEDICATIONS: Documented on the chart and were reviewed. ALLERGIES: DOCUMENTED ON THE CHART AND WERE REVIEWED. REVIEW OF SYSTEMS: A complete review of systems was performed and is negative with the exception of aforementioned findings. PHYSICAL EXAMINATION: VITAL SIGNS: Documented on the chart and were reviewed. GENERAL: The patient is awake, alert, oriented, and in no apparent distress. HEENT/NECK: His head and neck examination is benign with the exception of his anasarca. He has poor dentition. His right neck mass looks smaller. HEART: His heart has a regular rate and rhythm. Consultation Report [facility] [id number] [place]. [id number] NAME: JASON LUIS : 55 STATUS : ADM IN PAT#: [id number] AGE: 61 ADM/REG DATE : 01/28/17 MR#: [id number] REPORT SERV DATE: 01/29/17 DICTATED BY: SID MAYNARD DATE: 01/28/17 REPORT STATUS : Draft TRANSCRIBED BY: LAYLA DATE: 01/28/17 LUNGS: His lungs have crackles. ABDOMEN: Soft, nontender, and nondistended. EXTREMITIES: He has palpable upper extremity pulses with significant edema bilaterally. He has some small skin tears. He has palpable femoral pulses, but nonpalpable pulses distally. His right BKA site looks good, but the abigail are still in place. He has tremendous edema. On his left lower extremity, he has tremendous edema also and gangrenous changes to most of his toes. There is serous drainage from the wound. He has a small skin tear along his left leg. There are no signs of cellulitis, but he does have some drainage from his toes, perhaps suggesting some wet gangrene. ASSESSMENT AND PLAN: It looks like Mr. Luis has atherosclerosis of his left lower extremity with gangrenous changes of his forefoot, but he is actually admitted for volume overload. I have spoken to Dr. Acevedo about this. He is going to dialyze him daily to see if we can get some of his volume off them. I have taken out the abigail on his right leg and I have wrapped both of his legs to reduce the edema. Once his edema has reduced and he is medically optimized, we can talk about a left mxuwk-rgs-yjjj amputation. I did introduce the risks, benefits, and alternatives again. He thinks about what he wants to do. MANAGER WASTEWATER/MODL Sid Maynard M.D. / [id number] CC: Yamil Slater M.D.
[2017-01-28] LABS: BE (BASE EXCESS) -1.6 MEQ/L (0 +/- 2.5); CARBOXYHEMOGLOBIN 1.9 % (0-3); HCO3 (ACTUAL BICARBONATE) 22.6 MEQ/L (23-27); HEMOBLOGIN CONTENT 9.6 G/DL (14-18); INSTRUMENT SERIAL # 8087; O2 CONTENT 12.3 VOL% (18-24); OPERATOR ID 17589; PCO2 (CO2 TENSION) 36 MMHG (35-45); PO2 (O2 TENSION) 71 MMHG (79-93); SAMPLE Arterial; pH 7.41 (7.37-7.43)
[2017-01-28 00:02] LABS: BASOPHILS 0.3 %; BASOPHILS ABSOLUTE 0.02 10/3/uL (0.0-0.16); EOSINOPHILS 2.9 %; EOSINOPHILS ABSOLUTE 0.17 10/3/uL (0.0-0.53); ER CBC TAT 0 Hrs 07 Mins; HEMOGLOBIN 9.6 g/dL (13.6-17.8); IMMATURE GRANULOCYTES 0.5 %; IMMATURE GRANULOCYTES ABSOLUTE 0.03 10/3/uL (0.0-0.11); LYMPHOCYTES 11.8 %; LYMPHOCYTES ABSOLUTE 0.69 10/3/uL (0.67-4.30); MEAN CORPUS HGB CONC 31.7 g/dL (32.0-36.0); MEAN PLATELET VOLUME 9.2 fL (9.2-13.0); MONOCYTES 9.7 %; MONOCYTES ABSOLUTE 0.57 10/3/uL (0.21-1.20); NEUTROPHILS 74.8 %; NEUTROPHILS ABSOLUTE 4.39 10/3/uL (2.02-8.40); PLATELET COUNT 185 10/3/uL (150-400); WHITE BLOOD CELLS 5.9 10/3/uL (4.5-10.5)
[2017-01-28 00:04] LABS: HEMATOCRIT 30.3 % (40.0-51.0); MANUAL DIFF NO %; MEAN CORPUSCULAR HEMOGLOB 31.1 pg (26.0-34.0); MEAN CORPUSCULAR VOLUME 98.1 fL (80-100); RED CELL COUNT 3.09 10/6/uL (4.7-6.1)
[2017-01-28 00:16] LABS: INTERNATIONAL NORMAL RATI 1.3 UNITS (-); PARTIAL THROMBO TIME 32.7 SEC (22.5-37.2); PROTIME (NOT ORD) 15.7 SEC (12.0-14.5)
[2017-01-28 00:19] LABS: LACTATE 1.8 MMOL/L (0.3-2.4)
[2017-01-28 00:20] LABS: ALBUMIN 2.8 G/DL (3.5-5.0); CALCIUM, SERUM 8.3 MG/DL (8.5-10.4); CHLORIDE, SERUM 97 MMOL/L (96-112); CO2 (CARBON DIOXIDE) 27 MMOL/L (24-34); CREATININE 4.16 MG/DL (0.70-1.30); GFR AFRICAN AMERICAN 17 ML/MIN (>=60); GFR NON AFRICAN AMERICAN 14 ML/MIN (>=60); POTASSIUM, SERUM 5.4 MMOL/L (3.5-5.3); SGOT(AST) 36 U/L (5-40); SGPT(ALT) 38 U/L (5-65); SODIUM, SERUM 132 MMOL/L (135-148); TOTAL BILIRUBIN 0.5 MG/DL (0-1.2); TOTAL PROTEIN 5.8 G/DL (6.0-8.5)
[2017-01-28 00:25] LABS: PLATELET ESTIMATE ADQ (ADEQUATE)
[2017-01-28 00:26] LABS: A/G RATIO 0.9 (0.7-1.9); ALKALINE PHOSPHATASE 237 U/L (45-117); BUN (BLOOD UREA NITROGEN) 46 MG/DL (6-23); BURR CELLS 1+ (3-10/OIF) (0-2/OIF); GLUCOSE, SERUM 282 MG/DL (60-99)
[2017-01-28 00:27] LABS: TROPONIN I 0.06 NG/ML (<0.05)
[2017-01-28 00:28] LABS: HELMET CELLS OCC (0-2/OIF)
[2017-01-28 01:20] LABS: PROCALCITONIN 0.42 ng/mL (<0.5)
[2017-01-28] MEDS ORDERED: HUMALOG SC (02:02)
[2017-01-28] MEDS ORDERED: LANTUS SC ×2 (02:03→02:16)
[2017-01-28] MEDS ORDERED: PLAVIX PO (02:04)
[2017-01-28] MEDS ORDERED: LEVAQUIN750 MG PO (02:04)
[2017-01-28] MEDS ORDERED: ASAB PO (02:05)
[2017-01-28] MEDS ORDERED: Z100 PO (02:05)
[2017-01-28] MEDS ORDERED: DULCOLAX STOOL100 MG PO (02:06)
[2017-01-28] MEDS ORDERED: LIPITOR80 MG PO (02:06)
[2017-01-28] MEDS ORDERED: NEUR300 PO (02:07)
[2017-01-28] MEDS ORDERED: FOSRENOL1000 MG PO (02:07)
[2017-01-28] MEDS ORDERED: PRIN5 PO (02:09)
[2017-01-28] MEDS ORDERED: P10 PO (02:09)
[2017-01-28] MEDS ORDERED: ZOFRANODT8 (02:10)
[2017-01-28] MEDS ORDERED: COMP10B PO (02:14)
[2017-01-28] MEDS ORDERED: LEVOTHYROXIN150 MCG PO (02:15)
[2017-01-28] MEDS ORDERED: COREG6 PO (02:15)
[2017-01-28] MEDS ORDERED: TESSALON200 MG PO (02:16)
[2017-01-28] MEDS ORDERED: FLONASE NAS (02:17)
[2017-01-29 09:04] LABS: BASOPHILS 0.5 %; BASOPHILS ABSOLUTE 0.01 10/3/uL (0.0-0.16); EOSINOPHILS 11.8 %; EOSINOPHILS ABSOLUTE 0.26 10/3/uL (0.0-0.53); HEMATOCRIT 27.4 % (40.0-51.0); HEMOGLOBIN 8.6 g/dL (13.6-17.8); IMMATURE GRANULOCYTES 0.5 %; IMMATURE GRANULOCYTES ABSOLUTE 0.01 10/3/uL (0.0-0.11); LYMPHOCYTES 17.2 %; LYMPHOCYTES ABSOLUTE 0.38 10/3/uL (0.67-4.30); MANUAL DIFF NO %; MEAN CORPUS HGB CONC 31.4 g/dL (32.0-36.0); MEAN CORPUSCULAR HEMOGLOB 30.5 pg (26.0-34.0); MEAN CORPUSCULAR VOLUME 97.2 fL (80-100); MEAN PLATELET VOLUME 9.4 fL (9.2-13.0); MONOCYTES 6.8 %; MONOCYTES ABSOLUTE 0.15 10/3/uL (0.21-1.20); NEUTROPHILS 63.2 %; PLATELET COUNT 137 10/3/uL (150-400); RED CELL COUNT 2.82 10/6/uL (4.7-6.1); WHITE BLOOD CELLS 2.2 10/3/uL (4.5-10.5)
[2017-01-29 09:11] LABS: ALBUMIN 2.4 G/DL (3.5-5.0); CALCIUM, SERUM 7.8 MG/DL (8.5-10.4); CHLORIDE, SERUM 105 MMOL/L (96-112); CO2 (CARBON DIOXIDE) 28 MMOL/L (24-34)
[2017-01-29 09:13] LABS: BUN (BLOOD UREA NITROGEN) 30 MG/DL (6-23); CREATININE 2.77 MG/DL (0.70-1.30); GFR AFRICAN AMERICAN 27 ML/MIN (>=60); GFR NON AFRICAN AMERICAN 24 ML/MIN (>=60); GLUCOSE, SERUM 143 MG/DL (60-99); SODIUM, SERUM 139 MMOL/L (135-148)
[2017-01-29 09:52] LABS: HYPOCHROMIA 1+ (3-10/OIF) (0-2/OIF); PLATELET ESTIMATE SLT DEC (ADEQUATE)
[2017-01-29 09:53] LABS: MACROCYTES 1+ (5-10/OIF) (0-5/OIF); MICROCYTES 1+ (5-10/OIF) (0-5/OIF); POLYCHROMASIA 1+ (2-5/OIF) (0-1/OIF)
[2017-01-29] MEDS ORDERED: PLAVIX PO (17:55)
[2017-01-29] MEDS ORDERED: TESSALON200 MG PO (17:56)
[2017-01-29] MEDS ORDERED: FLONASE NAS (17:57)
[2017-01-29] MEDS ORDERED: LEVAQUIN750 MG PO (18:01)
[2017-01-29] MEDS ORDERED: HUMALOG SC (18:08)
[2017-01-29] MEDS ORDERED: LANTUS SC ×2 (18:10→18:11)
[2017-01-29] MEDS ORDERED: FOSRENOL1000 MG PO (18:27)
[2017-01-29] MEDS ORDERED: Z100 PO (18:28)
[2017-01-29] MEDS ORDERED: ASAB PO (18:28)
[2017-01-29] MEDS ORDERED: COREG6 PO (18:29)
[2017-01-29] MEDS ORDERED: DSS PO (18:31)
[2017-01-29] MEDS ORDERED: P10 PO (18:33)
[2017-01-29] MEDS ORDERED: PRIN5 PO (18:33)
[2017-01-29] MEDS ORDERED: LIPITOR80 MG PO (18:34)
[2017-01-29] MEDS ORDERED: NEUR300 PO (18:35)
[2017-01-29] MEDS ORDERED: SYN.15 PO (18:36)
[2017-01-29] MEDS ORDERED: OXYCOD PO (18:38)
[2017-01-29] MEDS ORDERED: ZOFRANODT8 SL (18:38)
[2017-01-29] MEDS ORDERED: COMP10B PO (18:49)
[2017-01-30 13:11] LABS: HEMATOCRIT 30.4 % (40.0-51.0); HEMOGLOBIN 9.4 g/dL (13.6-17.8); MEAN CORPUS HGB CONC 30.9 g/dL (32.0-36.0); MEAN CORPUSCULAR HEMOGLOB 31.2 pg (26.0-34.0); MEAN PLATELET VOLUME 9.6 fL (9.2-13.0); PLATELET COUNT 140 10/3/uL (150-400); RBC DISTRIBUTION WIDTH 25.6 % (12.0-16.0); RED CELL COUNT 3.01 10/6/uL (4.7-6.1); WHITE BLOOD CELLS 5.3 10/3/uL (4.5-10.5)
[2017-01-30 13:12] LABS: MANUAL DIFF YES %
[2017-01-30 13:36] LABS: ALBUMIN 2.6 G/DL (3.5-5.0); BUN (BLOOD UREA NITROGEN) 31 MG/DL (6-23); CALCIUM, SERUM 8.3 MG/DL (8.5-10.4); CHLORIDE, SERUM 103 MMOL/L (96-112); CO2 (CARBON DIOXIDE) 26 MMOL/L (24-34); CREATININE 3.16 MG/DL (0.70-1.30); GFR AFRICAN AMERICAN 23 ML/MIN (>=60); GFR NON AFRICAN AMERICAN 20 ML/MIN (>=60); GLUCOSE, SERUM 110 MG/DL (60-99); POTASSIUM, SERUM 5.7 MMOL/L (3.5-5.3); SODIUM, SERUM 138 MMOL/L (135-148)
[2017-01-30 14:13] LABS: EOSINOPHILS 4 %; EOSINOPHILS ABSOLUTE (CALC) 0.21 10/3/uL (0.0-0.53); LYMPHOCYTES 8 %; LYMPHOCYTES ABSOLUTE (CALC) 0.42 10/3/uL (0.67-4.30); MONOCYTES 23 %; MONOCYTES ABSOLUTE (CALC) 1.22 10/3/uL (0.21-1.20); NEUTROPHILS ABSOLUTE (CALC) 3.45 10/3/uL (2.02-8.40); PLATELET ESTIMATE SLT DEC (ADEQUATE); SEGMENTED NEUTROPHIL (0) 65 %; TOTAL NUCLEATED CELLS 100
[2017-01-30 14:14] LABS: MACROCYTES 1+ (5-10/OIF) (0-5/OIF); MICROCYTES 1+ (5-10/OIF) (0-5/OIF); POIKILOCYTOSIS 1+ (5-10/OIF) (0-5/OIF); SCHISTOCYTES OCC (0-2/OIF)
[2017-01-31 12:58] LABS: BASOPHILS 0.4 %; BASOPHILS ABSOLUTE 0.02 10/3/uL (0.0-0.16); EOSINOPHILS 6.3 %; EOSINOPHILS ABSOLUTE 0.31 10/3/uL (0.0-0.53); HEMATOCRIT 28.8 % (40.0-51.0); HEMOGLOBIN 8.9 g/dL (13.6-17.8); IMMATURE GRANULOCYTES 0.2 %; IMMATURE GRANULOCYTES ABSOLUTE 0.01 10/3/uL (0.0-0.11); LYMPHOCYTES 11.3 %; LYMPHOCYTES ABSOLUTE 0.56 10/3/uL (0.67-4.30); MEAN CORPUS HGB CONC 30.9 g/dL (32.0-36.0); MEAN CORPUSCULAR HEMOGLOB 30.5 pg (26.0-34.0); MEAN CORPUSCULAR VOLUME 98.6 fL (80-100); MEAN PLATELET VOLUME 9.1 fL (9.2-13.0); MONOCYTES 9.3 %; MONOCYTES ABSOLUTE 0.46 10/3/uL (0.21-1.20); NEUTROPHILS 72.5 %; PLATELET COUNT 131 10/3/uL (150-400); RBC DISTRIBUTION WIDTH 25.2 % (12.0-16.0); RED CELL COUNT 2.92 10/6/uL (4.7-6.1)
[2017-01-31 12:59] LABS: MANUAL DIFF NO %
[2017-01-31 13:14] LABS: PLATELET ESTIMATE SLT DEC (ADEQUATE)
[2017-01-31 13:22] LABS: ALBUMIN 2.7 G/DL (3.5-5.0); BUN (BLOOD UREA NITROGEN) 25 MG/DL (6-23); CALCIUM, SERUM 8.2 MG/DL (8.5-10.4); CHLORIDE, SERUM 104 MMOL/L (96-112); CO2 (CARBON DIOXIDE) 27 MMOL/L (24-34); CREATININE 2.96 MG/DL (0.70-1.30); GFR AFRICAN AMERICAN 25 ML/MIN (>=60); GFR NON AFRICAN AMERICAN 22 ML/MIN (>=60); GLUCOSE, SERUM 80 MG/DL (60-99); PHOSPHORUS, SERUM 4.7 MG/DL (2.5-4.5); POTASSIUM, SERUM 4.7 MMOL/L (3.5-5.3); SODIUM, SERUM 138 MMOL/L (135-148)
[2017-02-01 14:00] LABS: BASOPHILS 0.2 %; BASOPHILS ABSOLUTE 0.01 10/3/uL (0.0-0.16); EOSINOPHILS ABSOLUTE 0.33 10/3/uL (0.0-0.53); HEMATOCRIT 30.2 % (40.0-51.0); HEMOGLOBIN 9.3 g/dL (13.6-17.8); IMMATURE GRANULOCYTES 0.2 %; IMMATURE GRANULOCYTES ABSOLUTE 0.01 10/3/uL (0.0-0.11); LYMPHOCYTES ABSOLUTE 0.44 10/3/uL (0.67-4.30); MEAN CORPUS HGB CONC 30.8 g/dL (32.0-36.0); MEAN CORPUSCULAR HEMOGLOB 30.2 pg (26.0-34.0); MEAN CORPUSCULAR VOLUME 98.1 fL (80-100); MEAN PLATELET VOLUME 9.2 fL (9.2-13.0); MONOCYTES 8.5 %; MONOCYTES ABSOLUTE 0.47 10/3/uL (0.21-1.20); NEUTROPHILS 77.1 %; NEUTROPHILS ABSOLUTE 4.24 10/3/uL (2.02-8.40); PLATELET COUNT 142 10/3/uL (150-400); RBC DISTRIBUTION WIDTH 24.9 % (12.0-16.0); RED CELL COUNT 3.08 10/6/uL (4.7-6.1); WHITE BLOOD CELLS 5.5 10/3/uL (4.5-10.5)
[2017-02-01 14:01] LABS: MANUAL DIFF NO %
[2017-02-01 14:11] LABS: ALBUMIN 2.7 G/DL (3.5-5.0); BUN (BLOOD UREA NITROGEN) 24 MG/DL (6-23); CALCIUM, SERUM 8.4 MG/DL (8.5-10.4); CHLORIDE, SERUM 104 MMOL/L (96-112); CO2 (CARBON DIOXIDE) 26 MMOL/L (24-34); CREATININE 2.85 MG/DL (0.70-1.30); GFR AFRICAN AMERICAN 26 ML/MIN (>=60); GFR NON AFRICAN AMERICAN 23 ML/MIN (>=60); GLUCOSE, SERUM 140 MG/DL (60-99); PHOSPHORUS, SERUM 4.2 MG/DL (2.5-4.5); POTASSIUM, SERUM 4.4 MMOL/L (3.5-5.3); SODIUM, SERUM 137 MMOL/L (135-148)
[2017-02-01 14:25] LABS: HYPOCHROMIA 1+ (3-10/OIF) (0-2/OIF); PLATELET ESTIMATE SLT DEC (ADEQUATE)
[2017-02-01 14:26] LABS: ELLIPTOCYTES 1+ (3-10/OIF) (0-2/OIF); HELMET CELLS FEW (3-10/OIF); POIKILOCYTOSIS 1+ (5-10/OIF) (0-5/OIF)
[2017-03-23] MEDS ORDERED: NEUR300 PO (18:57)
[2017-03-23] MEDS ORDERED: SYN125 PO (18:57)
[2017-03-23] MEDS ORDERED: HALF81 PO (18:57)
[2017-03-23] MEDS ORDERED: P10 PO (18:57)
[2017-03-23] MEDS ORDERED: LIPITOR40 PO (18:57)
[2017-03-23] MEDS ORDERED: PLAVIX PO (18:57)
[2017-03-23] MEDS ORDERED: Z100 PO (18:57)
[2017-03-23] MEDS ORDERED: HUMALOG SC (18:58)
[2017-03-23] MEDS ORDERED: NITROSTAT0.4 MG SL (18:58)
[2017-03-23] MEDS ORDERED: COREG6 PO (18:58)
[2017-03-23] MEDS ORDERED: LANTUS SC (18:58)
[2017-03-23] MEDS ORDERED: VANCO1P IV (18:59)
[2017-03-23] MEDS ORDERED: NORCO1 TAB PO (18:59)
[2017-03-23] MEDS ORDERED: FORTAZ IV (19:00)
[2017-04-05] MEDS ORDERED: FLUCON1 PO (13:48)
[2017-04-06] MEDS ORDERED: NYSTATPOW TOP (16:13)
[2017-04-06] MEDS ORDERED: VANCO500 IV (16:14)
[2017-04-29] MEDS ORDERED: ATV.5 PO (22:08)
[2017-05-02] MEDS ORDERED: PROTONIX PO (16:43)
[2017-05-02] MEDS ORDERED: LEVAQUIN5T PO (16:44)
[2017-05-02] MEDS ORDERED: CARASPUDL PO (16:48)
== END 2017-02-01 17:38 | DRG 291 ==
LOC: ER 23:21 → 4SO 01-28 02:05
PROVIDERS: Internal Medicine Nephrology; Nurse Practitioner Acute Care; Registered Nurse
DX: I13.2 Hypertensive heart and chronic kidney disease with heart failure and with stage 5 chronic kidney disease, or end stage renal disease (principal); N18.6 End stage renal disease; I70.262 Atherosclerosis of native arteries of extremities with gangrene, left leg; Z94.83 Pancreas transplant status; E11.22 Type 2 diabetes mellitus with diabetic chronic kidney disease; I50.22 Chronic systolic (congestive) heart failure; Z94.0 Kidney transplant status; E11.65 Type 2 diabetes mellitus with hyperglycemia; I25.10 Atherosclerotic heart disease of native coronary artery without angina pectoris; D63.1 Anemia in chronic kidney disease; E03.9 Hypothyroidism, unspecified; Z79.4 Long term (current) use of insulin; Z99.2 Dependence on renal dialysis; Z79.02 Long term (current) use of antithrombotics/antiplatelets; Z79.82 Long term (current) use of aspirin; Z79.899 Other long term (current) drug therapy; I25.2 Old myocardial infarction; Z89.512 Acquired absence of left leg below knee; Z89.511 Acquired absence of right leg below knee; Z98.61 Coronary angioplasty status; Z85.89 Personal history of malignant neoplasm of other organs and systems
CPT/HCPCS: 36600; 71010; 80053; 80069; 80202; 81001; 82805; 82962; 83605; 83735; 83880; 84145; 84484; 85025; 85610; 85730; 87040; 87070; 87205; 93005; 93306; 93970; 94640; 97110-GO; 97110-GP; 97161-GP; 97165-GO; 97530-GP; 97535-GO; 99285; A9270-GY; G0257; J2405; J3370; P9047